=== PATIENT | female | born 1945 | race Caucasian/White ===

== ENCOUNTER 2018-09-09 16:20 | Inpatient (IN) | payer MEDICARE, BC ==
[~2018-09-09] VITALS: Ht 165.1 cm; Wt 85.5 kg
[2018-09-09] MEDS ORDERED: NORVASC5 MG PO (16:37)
[2018-09-09] MEDS ORDERED: METOPROLOL TART50 MG PO (16:38)
[2018-09-09] MEDS ORDERED: COZAAR100 MG PO (16:38)
[2018-09-09] MEDS ORDERED: PROTONIX40 MG PO (16:39)
[2018-09-09] MEDS ORDERED: LYRICA50 MG PO (16:39)
[2018-09-09] MEDS ORDERED: NITROQUICK0.4 MG SL (16:40)
[2018-09-09] MEDS ORDERED: ALBUTEROL2.5 MG/3 M INH (16:40)
[2018-09-09] MEDS ORDERED: ALBUTEROL SULF8.5 GM INH (16:40)
[2018-09-09] MEDS ORDERED: OMEPRAZOLE20 M1 PO (16:41)
[2018-09-09] MEDS ORDERED: RANITIDINE HCL150 M1 PO (16:42)
[2018-09-09 18:01] LABS: APPEARANCE CLEAR (CLEAR); BILIRUBIN NEGATIVE (NEGATIVE); COLOR STRAW (YELLOW); GLUCOSE NEGATIVE (NEGATIVE); KETONE NEGATIVE (NEGATIVE); NITRITE NEGATIVE (NEGATIVE); PROTEIN NEGATIVE (NEGATIVE); SPECIFIC GRAVITY 1.015 (1.005-1.020); UROBILINOGEN NORMAL (NORMAL)
--- NOTE | 2018-09-09 19:22 | NUR ---
The patient denies any SI, according to the suicide assessment she scores low and does not require a 1:1 observation.
[2018-09-09 22:50] VITALS: BP 145/83; BMI 31.3
[2018-09-09 23:23] LABS: BASOPHILS 0.1 % (0-2); EOSINOPHILS 0 % (0-7); HEMATOCRIT 49.8 % (36.0-48.0); IMMATURE GRANULOCYTES 0.2 % (0-5); LYMPHOCYTES 8.9 % (15-50); MCHC 34.1 g/dL (31.0-37.0); MCV 87.8 fL (80.0-100.0); MEAN PLATELET VOLUME 10.6 fL (7.4-10.4); MONOCYTES 1.2 % (2-11); NEUTROPHILS 89.6 % (40-80); PLATELET COUNT 201 10x3/uL (130-400); RBC 5.67 10x6/uL (4.00-5.40); RDW 13.7 % (11.5-14.5); WBC 8.2 10x3/uL (4.8-10.8)
[2018-09-09 23:36] LABS: ALBUMIN 4.2 g/dL (3.4-5.0); ANION GAP 15.7 mmol/L (8-16); BILIRUBIN - TOTAL 0.87 mg/dL (0.2-1.3); CARBON DIOXIDE 25.4 mmol/L (21.0-32.0); CREATININE - SERUM 0.8 mg/dL (0.6-1.3); POTASSIUM - SERUM 4.1 mmol/L (3.5-5.1); PROTEIN - SERUM 8.1 g/dL (6.4-8.2)
[2018-09-10] VITALS: BP 145/83
[2018-09-10 03:15] VITALS: Ht 165.1 cm; Wt 85.5 kg
[2018-09-10 04:00] VITALS: BP 135/73
--- NOTE | 2018-09-10 07:23 | NUR ---
ASSESSED AT THE TIME OF ARRIVAL FROM ER. PT IS ALERT AND ORIENTED BUT IS VERY ANXIOUS. SHE WAS SEEN BY BOWEN FOR DR PEDERSON WHEN SHE HAD BEEN HERE FOR A VERY SHORT WHILE. WE PLACED TELEMETRY ON HER AND THEN THEN GAVE HER DILAUDID TWICE DURING THE NIGHT FOR BACK PAIN AND ANXIETY. SHE IS ALSO ON FALL PRECAUTIONS. O2 WAS ORDERED FOR HER AND IT IS ON AT THIS TIME ALTHOUGH SHE IS NOT WANTING TO KEEP IT ON. SHE HAS HER CALL LIGHT ON FREQUENTLY TELLING US SHE IS ANXIOUS AND WE HAVE TRIED TO KEEP HER CALM. NO PROBLEMS HAVE BEEN NOTED.
--- NOTE | 2018-09-10 07:30 | NUR ---
A SUGGS CATH WAS PALCED IN PATIENT AT ABOUT MIDNIGHT AFTER IT WAS ORDERED DUE TO HER BACK PAIN AND VERY FREQUENT VOIDING.
[2018-09-10 08:00] VITALS: BP 126/75
--- NOTE | 2018-09-10 13:05 | NUR ---
PT RESTING IN BED. NO SIGNS OF DISTRESS. IV TO LEFT AC PATENT NO REDNESS OR TENDERNESS. ON TELEMETRY 93 SR. COMPLAINS OF ANXIETY MEDICATIONS GIVEN. DENIES ANY FUTHER NEED AT THIS TIME. CALL LIGHT IN REACH. BED LOW POSIITON. FAMILY AT BEDSIDE.
[2018-09-10 13:07] VITALS: BP 117/63
--- NOTE | 2018-09-10 13:32 | NUR ---
MRI BRAIN CANCELLED BY DR. PEDERSON. DUE TO PATIENT HAD MRI BRAIN AT [facility] ON THURSDAY, SEPTEMBER 06, 2018. IMAGES AND REPORT ARE IN PACS. NURSE, ERICH, NOTIFIED.
[2018-09-10 17:23] VITALS: BP 136/61
[2018-09-10 20:00] VITALS: BP 126/67
[2018-09-11] VITALS: BP 145/89
[2018-09-11 04:00] VITALS: BP 150/80
--- NOTE | 2018-09-11 04:31 | NUR ---
ASSESSED AT THE BEGINNING OF THE SHIFT. PT WAS LETHARGIC AND SLEEPY. HER DAUGHTAER HAD COME OUT AND STATED SHE HAD A HEADACHE AND NEEDED TYLENOL BUT WAS ASLEEP AND WOULD WE GIVE IT TO HER WHEN SHE WOKE. WHEN AWAKENED FOR HS MEDS WE GAVE HER TYLENOL BUT HELD THE ATIVAN DUE TO HER SLEEPING. AFTER LESS THAN 30 MINUTES SHE WAS SO UPSET SHE WAS SHAKING ALL OVER AND NEEDED HER ATIVAN. SHE KEEP STATING THAT SHE IS VERY ANXIOUS AND NEEDS TO SLEEP. LATER DURING THE NIGHT SHE HAS BEEN REQUESTING TO STAND AND SWAY AT THE BEDSIDE TO HELP HER REST BETTER. HER TELEMETRY IS SHOWING SINUS RHYTHM IN THE 60'S. THE BED ALARM REMAINS IN PLACE.
[2018-09-11 05:51] LABS: BASOPHILS 0 % (0-2); EOSINOPHILS 0 % (0-7); HEMATOCRIT 43.5 % (36.0-48.0); HEMOGLOBIN 14.7 g/dL (12-16); IMMATURE GRANULOCYTES 0.4 % (0-5); LYMPHOCYTES 8.3 % (15-50); MCH 29.7 pg (26.0-34.0); MCHC 33.8 g/dL (31.0-37.0); MCV 87.9 fL (80.0-100.0); MEAN PLATELET VOLUME 10.5 fL (7.4-10.4); MONOCYTES 4.3 % (2-11); PLATELET COUNT 195 10x3/uL (130-400); RBC 4.95 10x6/uL (4.00-5.40); RDW 13.8 % (11.5-14.5)
[2018-09-11 06:02] LABS: WBC 10.8 10x3/uL (4.8-10.8)
[2018-09-11 06:05] LABS: ANION GAP 10.4 mmol/L (8-16); CALCIUM 9.4 mg/dL (8.5-10.1); CARBON DIOXIDE 28.9 mmol/L (21.0-32.0); CREATININE - SERUM 0.8 mg/dL (0.6-1.3); POTASSIUM - SERUM 4.3 mmol/L (3.5-5.1)
[2018-09-11] MEDS ORDERED: DECADRON4 MG PO (08:37)
--- NOTE | 2018-09-11 09:00 | NUR ---
IV DC WITH CATH INTACT, DC INSTUCTIONS GIVEN PT VERABLIZES UNDERSTANDING, FAMILY AT BEDSIDE NO CONCERNS VOICED, DISK WITH IMAGING RESULTS ON IT GIVEN TO PT, LEAVING VIA WHEELCHAIR IN STABLE CONDITON
[2018-09-11 09:12] VITALS: BP 131/80
--- NOTE | 2018-09-11 09:38 | NUR ---
PT REQUESTED DEC[facility] RX BE CALLED TO [facility]. CALLED RX AND SPOKE WITH LADONNA PHARMACIST.
== END 2018-09-11 09:43 | disposition home or self-care (01) | DRG 551 ==
LOC: D.ER 16:20 → D.EDHOLD 21:19 → D.MS 21:42
PROVIDERS: Emergency Medicine; Family Medicine; ADMIT Internal Medicine Nephrology; ATTEND Internal Medicine Nephrology
DX: S32.011A Stable burst fracture of first lumbar vertebra, initial encounter for closed fracture (principal); G93.6 Cerebral edema; G81.94 Hemiplegia, unspecified affecting left nondominant side; W19.XXXA Unspecified fall, initial encounter; D43.2 Neoplasm of uncertain behavior of brain, unspecified

== ENCOUNTER → 2018-09-22 08:06 | Outpatient (CLI) | payer MEDICARE, BC ==
[2018-09-10 03:15] VITALS: BMI 31.3
[~2018-09-22 08:06] MED LIST: ALBUTEROL SULF8.5 GM INH; ALBUTEROL2.5 MG/3 M INH; ATIVAN0.5 MG PO; BAYER CHEWABLE81 MG PO; COLACE100 MG PO; COZAAR100 MG PO; DECADRON4 MG PO; LYRICA50 MG PO; MEDROL DOSE PACK4 MG PO; METOPROLOL TART50 MG PO; NITROQUICK0.4 MG SL; NORVASC5 MG PO; OMEPRAZOLE20 M1 PO; PREDNISONE5 MG PO; PROTONIX40 MG PO; RANITIDINE HCL150 M1 PO; SINGULAIR10 MG PO; ULTRAM50 MG PO
== END | disposition home or self-care (01) ==
LOC: D.MRI 08:06
PROVIDERS: ATTEND Neurological Surgery
DX: D49.6 Neoplasm of unspecified behavior of brain (principal)

== ENCOUNTER 2018-09-22 08:36 | Inpatient (IN) | payer MEDICARE, BC ==
[~2018-09-22] VITALS: Ht 165.1 cm; Wt 86.6 kg
--- NOTE | ~2018-09-22 | OP ---
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 PROCEDURE: Right frontal craniotomy with stereotactic navigation for scalp flap planning as well as intraoperative resection monitoring, intraoperative ultrasound. SURGEON: Balbir Gusman MD DESCRIPTION AND TECHNIQUE: After induction of general endotracheal anesthesia, the patient was placed in Castell head pin and its registration took place with the TrademarkFly navigation system and fiducial markers on the scalp. A scalp incision and skull flap were planned using the TrademarkFly navigation. After sterile prep and drape of the right frontal scalp, a linear scalp incision was carried out from the midline to approximately 4 cm laterally. Natalia clips were applied to the scalp for hemostasis. Two ashley holes were created, one based off the midline and another approximately 4 cm lateral to that. These were connected with a Midas-Kamlesh drill. The skull was elevated without difficulty from the dura. The dura was opened in a cruciate manner with bipolar cautery and #11 blade. With a Kanika navigation, the tumor was well centered within the exposure of the brain. The gyri were edematous. Sulci were effaced. Next, a portion of the tumor was located approximately 3-mm deep to the cortical surface of the brain. The cyndi over this area was cauterized with bipolar cautery and then a small corticotomy was created with #11 blade. Under microscopic illumination, several biopsies were sent to pathology for diagnosis. These were consistent with lymphoma. Next, under microscopic illumination the CUSA was used to evacuate the inner portions of the tumor and then the capsule was dissected away from the surrounding white matter until there appeared to be a gross total resection of the tumor. Meticulous hemostasis was maintained throughout the wound. The dura was reapproximated with interrupted 4-0 Nurolon suture. The skull flap was replaced with titanium plates and screws. The galea was reapproximated with interrupted 2-0 Vicryl suture. The skin was closed with yuan. A sterile dressing was applied to the wound. The patient was awakened in good condition and taken to recovery. All counts were reported as correct. ESTIMATED BLOOD LOSS: Minimal. TRANSINT:[id number] Voice Confirmation ID: [id number] DOCUMENT ID: [id number] OPERATIVE REPORT [id number] INDIA FINE JOHN MD CC: [id number] DICTATION DATE: 10/13/181811 VALUE STREAM MANAGER: 10/13/182248 DIS IN 09/27/18 [place] [id number] [place] [id number]
[~2018-09-22 08:36] MED LIST changes: -ATIVAN0.5 MG PO; -BAYER CHEWABLE81 MG PO; -COLACE100 MG PO; -MEDROL DOSE PACK4 MG PO; -PREDNISONE5 MG PO; -SINGULAIR10 MG PO; -ULTRAM50 MG PO
[2018-09-22] MEDS ORDERED: PREDNISONE5 MG PO (10:18)
[2018-09-22] MEDS ORDERED: BAYER CHEWABLE81 MG PO (10:19)
[2018-09-22] MEDS ORDERED: ATIVAN0.5 MG PO (10:20)
[2018-09-22 11:01] LABS: HEMATOCRIT 46.9 % (36.0-48.0); HEMOGLOBIN 15.9 g/dL (12-16); MCH 30.1 pg (26.0-34.0); MCHC 33.9 g/dL (31.0-37.0); MCV 88.8 fL (80.0-100.0); MEAN PLATELET VOLUME 9.5 fL (7.4-10.4); RBC 5.28 10x6/uL (4.00-5.40); RDW 14.8 % (11.5-14.5); WBC 17.4 10x3/uL (4.8-10.8)
[2018-09-22 11:15] LABS: ANION GAP 8.8 mmol/L (8-16); CALCIUM 8.5 mg/dL (8.5-10.1); CARBON DIOXIDE 30.5 mmol/L (21.0-32.0); CREATININE - SERUM 0.8 mg/dL (0.6-1.3); POTASSIUM - SERUM 4.3 mmol/L (3.5-5.1)
[2018-09-24] VITALS (18 sets, daily range): BP systolic 100–139; BP diastolic 54–78; BMI 31.3
--- NOTE | 2018-09-24 06:52 | NUR ---
SUICIDE SCREENING STATES BEHAVIORAL REFERRAL AT DISCHARGE. PT WILL BE ADMITTED AFTER SURGERY. NOTIFIED BIBLICAL STUDIES PROFESSOR, MARCI. STATES THEY WILL RE-EVAL WHEN ADMITTED TO FLOOR. PT STATES HAD CONSULT IN ER TWO WEEKS AGO.
--- NOTE | 2018-09-24 09:59 | NUR ---
DR COX PRESENT AND ASSISTING ON POSITION INTO OGALLAH HEADREST, ALL AREAS PADDED SECURED WITH NO IMPINGEMENTS, CAROLINE.
[2018-09-25] VITALS (24 sets, daily range): BP systolic 110–146; BP diastolic 60–91; Ht 165.1 cm; Wt 86.6 kg
--- NOTE | 2018-09-25 00:53 | NUR ---
1900 REPORT RECEIVED CARE ASSUMED. PT LAYING IN BED RESTING. PT PULLING AT STOCKING ON HEAD TEACHING PROVIDED. ASSESSEMENT DONE SEE FLOW SHEET VSS. 2100 MEDS GIVEN PER MAY. VSS. COMPLETE BED BATH GIVEN CHG BATH GIVEN WILL CONTINUE TO MONITOR. 230 REASSESSMENT DONE SEE FLOW SHEET VSS. 0100 WATER PROVIDED PER PT REQUEST WILL CONTINUE TO MONITOR.
--- NOTE | 2018-09-25 03:00 | NUR ---
REASSESSMENT DONE SEE FLOW SHEET VSS WILL CONTINUE TO MONITOR.
--- NOTE | 2018-09-25 05:00 | NUR ---
IO COLLECTED DAILY WEIGHT COLLECTED. VSS. WAVE FORM POSITIONAL ON ART LINE NIBP WITHIN TARGET RANGE. WILL CONITNUE TO MONITOR.
--- NOTE | 2018-09-25 21:00 | NUR ---
1900 REPORT RECEIVED CARE ASSUMED ASSESSMENT DONE SEE FLOW SHEET VSS. 2100 MEDS GIVEN PER MAR. VSS. NO SIGNS OF ACUTE DISTRESS NOTED. CHG BATH PROVIDED. COMPLETE LINEN CHANGE PROVIDED. WILL CONTINUE TO MONITOR.
[2018-09-26] VITALS (24 sets, daily range): BP systolic 123–168; BP diastolic 67–99
--- NOTE | 2018-09-26 00:57 | NUR ---
2300 REASSESSMENT DONE SEE FLOW SHEET. VSS. 0056 PT RESTING IN BED COMFORTABLY VSS NO SIGNS OF ACUTE DISTRESS NOTED WILL CONTINUE TO MONITOR.
--- NOTE | 2018-09-26 02:59 | NUR ---
REASSESSMENT DONE SEE FLOW SHEET VSS. PT ABLE TO MOVE LUE NOTABLY MORE. WILL CONTINUE TO MONITOR.
--- NOTE | 2018-09-26 10:15 | NUR ---
HAVING PANIC ATTACK. CRYING AND SCREAMING THAT SHE IS ITCHING ALL OVER. WANTING TO TAKE A SHOWER. GIVEN HER CELL PHONE SO SHE COULD CALL HER . DAUGHTER CALLED FROM ROOM PHONE WITH NO ANSWER. COMPLETE BATH AND LINEN CHANGE DONE. ASSISTED UP TO CHAIR. 1030: CALMER NOW. FAMILY ON THE WAY.
--- NOTE | 2018-09-26 14:15 | NUR ---
DR. COX HERE. CONDITION UPDATE GIVEN. REC'D ORDER TO RESTART HOME MEDS.
--- NOTE | 2018-09-26 20:03 | NUR ---
PT RECEIVED WITH EYES OPEN WATCHING PLAYING GAME ON TABLE. DENIES FEELING ANXIOUS AT THIS TIME. ASSESSMENT COMPLETED SEE FLOW SHEET. VSS. NO S/S OF DISTRESS. DAUGHTER AT BEDSIDE LEAVING ROOM. CALL LIGHT IN REACH. WILL CONTINUE TO OBSERVE.
--- NOTE | 2018-09-26 21:37 | NUR ---
MEDICATIONS GIVEN PER MAR, TOLERATED WELL. DAUGHTER AT BEDSIDE. C/O HEADACHE WITH PRN MEDICATIONS GIVEN FOR PAIN AND ANXIETY. CALL LIGHT IN REACH. WILL CONTINUE TO OBSERVE.
--- NOTE | 2018-09-26 22:38 | NUR ---
CHG BATH GIVEN BY DAUGHTER. PT TOLERATED WELL. ASSIST GIVEN WITH LINENS AND REPOSITIONING. WARM BLANKET PROVIDED PER REQUEST. NO OTHER NEEDS MADE KNOWN. LIGHTS TURNED OUT. CALL LIGHT IN REACH. WILL CONTINUE TO OBSERVE.
--- NOTE | 2018-09-26 23:08 | NUR ---
REASSESSMENT COMPLETED, SEE FLOW SHEET. NO NEEDS MADE KNOWN. CALL LIGHT IN REACH. WILL CONTINUE TO OBSERVE.
[2018-09-27] VITALS (18 sets, daily range): BP systolic 108–161; BP diastolic 51–91
--- NOTE | 2018-09-27 01:20 | NUR ---
PT RESTING WITH EYES CLOSED AND CHEST RISING. NO S/S OF DISTRESS. CALL LIGHT IN REACH. WILL CONTINUE TO OBSERVE.
--- NOTE | 2018-09-27 02:01 | NUR ---
PT USES CALL LIGHT, STATES THAT SHE IS FEELING COLD AND NEEDS ASSIST WITH REPOSITIONING. PILLOW PLACE UNDER LEFT SIDE AND WARM BLANKET PROVIDED. WILL CONTINUE TO OBSERVE. CALL LIGHT IN REACH.
--- NOTE | 2018-09-27 04:02 | NUR ---
REASSESSMENT COMPLETED, SEE FLOW SHEET. NO S/S OF DISTRESS. WILL CONTINUE TO OBSERVE. CALL LIGHT IN REACH.
--- NOTE | 2018-09-27 08:07 | NUR ---
SHIFT ASSESSMENT COMPLETE. PT HAS BEEN GIVEN BREAKFAST. AT BEDSIDE. PT STATES "HAD GOOD EVENING" AND "FEELS BETTER TODAY THAN WHEN FIRST ARRIVED"
--- NOTE | 2018-09-27 08:37 | NUR ---
Nutrition follow-up: Diet: Regular PO intake ~75% average of last 6 meals Labs reviewed Wt: 191# RDN following.
--- NOTE | 2018-09-27 08:49 | NUR ---
PHYSICAL THERAPIST AT BEDSIDE AT THIS TIME FOR THERAPY
--- NOTE | 2018-09-27 10:11 | NUR ---
DR COX BY TO SEE PT. REHAB EVAL ORDERED. PT CAN TRANSFER TO FLOOR IF WILL BE SEVERAL DAYS BEFORE CAN GET TO INPATIENT REHAB. ALSO OK TO RESTART PT HOME DOSING OF SINGULAIR.
[2018-09-27] MEDS ORDERED: SINGULAIR10 MG PO (10:17)
--- NOTE | 2018-09-27 10:44 | NUR ---
Rehab Note- Acute INpatient Rehab prescreen order received. The patient is a good inpatient acute rehab candidate. Will follow at this time & if the patient is in agreeance will accept to [facility] Acute INpatient Rehab when medically stable & ready for discharge from the acute hospital. Thank you for this referral! Gissell Alas RN Clinical Liaison, [facility] Rehab
--- NOTE | 2018-09-27 15:03 | NUR ---
PT HAS BEEN ACCEPTED TO INPATIENT REHAB. HAVE ATTEMPTED TO CALL DR COX AND HIS OFFICE TO GET DISCHARGE INSTRUCTIONS. NOT YET ABLE TO REACH HIM.
--- NOTE | 2018-09-27 15:06 | MORECARE ---
CASE MANAGEMENT DISCHARGE SUMMARY PATIENT: INDIA FINE UNIT: [id number] ADM DATE: 09/24/18 AGE: 72 : 45 SEX: F [facility] AUTHOR: SANDRINE JENKINS PHYSICIAN: REFERRING PHYSICIAN: BALBIR COX MD DATE OF SERVICE: 09/27/18 Discharge Plan Patient Name: INDIA FINE [facility] [facility] 1945 Planned Disposition: Inpatient Rehab Anticipated Discharge Date: Discharge Date: Expected LOS: Initial Reviewer: [email or web address] Initial Review Date: 09/27/2018 Generated: 09/27/18 4:06 pm DCP- Discharge Planning Updated by [email or web address]: Karen Miranda on 09/27/18 10:[address] Patient Name: INDIA FINE Admission Status: Urgent Accout number: [id number] Admission Date: 09-24-2018 : 1945 Admission Diagnosis: Attending: BALBIR COX Current LOS: 3 Anticipated DC Date: Planned Disposition: Primary Insurance: MEDICARE A & B Discharge Planning Comments: CM MET WITH PATIENT AND SHE DOES WANT IPRH. IMM SIGNED. SARAH NOTIFIED AND WAITING FOR CALL BACK. Marketing Production Manager: Karen Mirnada Coverage Notice Reviewer: [id number] - Karen Miranda Notice Issued Date-Time: 09/27/2018 11:36 Notice Type: IM Discharge Notice Notice Delivered To: Patient Relationship to Patient: Self Feed Blender Name: Delivery Method: HAND - Hand Delivered Adalgisa Days: Prior Verbal Notification: Recipient Understood Notice: Yes Recipient Signature: Yes Med Rec Note Co-signed by Attending: Coverage Notice Comment: Patient Name: INDIA FINE Page [phone] at 1506 All edits/amendments must be made on the electronic document DICTATION DATE: 09/27/18 1505 REVERSE ENGINEER: BERRY 09/27/18 1505 RPT#: [id number] DC DATE: STATUS: ADM IN [facility] [address] [place] [address] END OF REPORT
[2018-09-27] MEDS ORDERED: NORVASC5 MG PO (15:36)
[2018-09-27] MEDS ORDERED: PROTONIX40 MG PO (15:43)
[2018-09-27] MEDS ORDERED: MEDROL DOSE PACK4 MG PO (15:43)
[2018-09-27] MEDS ORDERED: COLACE100 MG PO (15:44)
[2018-09-27] MEDS ORDERED: ULTRAM50 MG PO (15:45)
--- NOTE | 2018-09-27 17:07 | NUR ---
RIGHT JUGULAR CENTRAL LINE REMOVED, TIP INTACT. NO BLEEDING. SITE COVERED WITH GAUZE AND TEGADERM DRESSING. SUGGS CATHETER REMOVED WITH NO DIFFICULTY. TIP INTACT. DINNER TRAY PROVIDED. REPORT HAS BEEN CALLED TO [facility] IN REHAB.
--- NOTE | 2018-09-27 17:40 | NUR ---
OT NOTE: PT COMPLETED AAROM TO [facility]OD[facility]. THANK YOU, LOCO WINN
--- NOTE | 2018-09-28 11:30 | MORECARE ---
CASE MANAGEMENT DISCHARGE SUMMARY PATIENT: INDIA FINE UNIT: [id number] ADM DATE: 09/24/18 AGE: 72 : 45 SEX: F ROOM/BED: D.[facility] AUTHOR: SANDRINE JENKINS PHYSICIAN: REFERRING PHYSICIAN: BALBIR COX MD DATE OF SERVICE: 09/28/18 Discharge Plan Patient Name: INDIA FINE Facility: [facility]:[place] : 1945 Planned Disposition: Inpatient Rehab Anticipated Discharge Date: Discharge Date: 09/27/2018 Expected LOS: Initial Reviewer: [email or web address] Initial Review Date: 09/27/2018 Generated: 09/28/18 12:29 pm DCP- Discharge Planning Updated by [email or web address]: Karen Miranda on 09/27/18 10:[address] Patient Name: INDIA FINE Admission Status: Urgent Accout number: [id number] Admission Date: 09-24-2018 : 1945 Admission Diagnosis: Attending: BLABIR COX Current LOS: 3 Anticipated DC Date: Planned Disposition: Primary Insurance: MEDICARE A & B Discharge Planning Comments: CM MET WITH PATIENT AND SHE DOES WANT IPR. IMM SIGNED. SARAH NOTIFIED AND WAITING FOR CALL BACK. Gimp Buttonhole Machine Operator: Karen Miranda Coverage Notice Reviewer: [id number] - Karen Miranda Notice Issued Date-Time: 09/27/2018 11:36 Notice Type: IM Discharge Notice Notice Delivered To: Patient Relationship to Patient: Self Hop Separator Name: Delivery Method: HAND - Hand Delivered Adalgisa Days: Prior Verbal Notification: Recipient Understood Notice: Yes Recipient Signature: Yes Med Rec Note Co-signed by Attending: Coverage Notice Comment: Last DP export: 09/27/18 2:06 pm Patient Name: INDIA FINE Page [phone] at 1130 All edits/amendments must be made on the electronic document DICTATION DATE: 09/28/18 112 BUSINESS LEADER: BERRY 09/28/18 1129 RPT#: [id number] DC DATE:09/27/18 STATUS: DIS IN [place] [id number] [place] [address] END OF REPORT
== END 2018-09-27 19:05 | DRG 26 ==
LOC: D.SDCHOLD 09-24 05:15 → D.CVICU 09-24 12:15
PROVIDERS: Anesthesiology; ADMIT Neurological Surgery; ATTEND Neurological Surgery
PROC: 00B00ZZ Excision of Brain, Open Approach (ICD-10-PCS; principal; 2018-09-24 07:30)
DX: D49.6 Neoplasm of unspecified behavior of brain (principal); S32.019A Unspecified fracture of first lumbar vertebra, initial encounter for closed fracture; W19.XXXA Unspecified fall, initial encounter; I10 Essential (primary) hypertension; J45.909 Unspecified asthma, uncomplicated; M21.371 Foot drop, right foot; K21.9 Gastro-esophageal reflux disease without esophagitis; M19.90 Unspecified osteoarthritis, unspecified site; R48.2 Apraxia

== ENCOUNTER 2018-09-27 16:33 | Inpatient (IN) | payer MEDICARE, BC ==
[~2018-09-27] VITALS: Ht 165.1 cm; Wt 86.6 kg
[~2018-09-27 16:33] MED LIST changes: +ATIVAN0.5 MG PO; +BAYER CHEWABLE81 MG PO; +COLACE100 MG PO; +MEDROL DOSE PACK4 MG PO; +PREDNISONE5 MG PO; +SINGULAIR10 MG PO; +ULTRAM50 MG PO
[2018-09-27 20:09] VITALS: BP 146/91; BMI 31.8
--- NOTE | 2018-09-27 22:17 | NUR ---
DR MAURO NOTIFIED AND REVIEWED PT BEHAVIOR AND ASSESSMENT RESULTS. PT IS A LOW RISK PER . DR MAURO STATED TO GIVE RESOURCES TO PT AT TIME OF DISCHARGE. NO FURTHER ORDERS AT THIS TIME. RESOURCES REVIEWED WITH PT AND SHE VERBALIZED UNDERSTANDING.
--- NOTE | 2018-09-27 22:42 | NUR ---
ADMITTED TO 1108B FOR PHSICAL REHAB AND SERVICES OF DR CARPENTER. AWAKE AND ALERT. RESPIRATIONS UNLABORED. DRESSING TO FORMER IJ SITE DRY AND INTACT. NOTED WEAKNESS IN LEFT ARM/HAND AND BLE'S. SEE ADMISSION ASSESSMENT. NOTED ANXIOUS AND WAS TREATED WITH MEDICATION PRN. SEE MAY. DAUGHTER REMAINED AT BEDSIDE UNTIL SHE WAS CALMER. NOW RESTING WITH NO ACUTE DISTRESS NOTED.
--- NOTE | 2018-09-28 02:20 | NUR ---
RESTING IN BED WITH RESPRIATIONS UNLABORED. HAS BEEN UP TO BATHROOM X 2 THIS SHIFT AND VOIDING WITHOUT DIFFICULTY. NO ACUTE DISTRESS NOTED. CALL LIGHTJENA ARREOLA.
--- NOTE | 2018-09-28 05:00 | NUR ---
RESTING IN BED. HAS BEEN UP TO BATHROOM SEVERAL TIMES THIS SHIFT TO VOID BUT DID NOT HAVE BM. USES WALKER WITH COAXING. NO ACUTE CHANGES IN CONDITION THIS SHIFT. NO ACUTE DISTRESS NOTED.
[2018-09-28 07:35] LABS: BASOPHILS 0 % (0-2); EOSINOPHILS 0 % (0-7); HEMATOCRIT 44.5 % (36.0-48.0); HEMOGLOBIN 14.8 g/dL (12-16); IMMATURE GRANULOCYTES 0.5 % (0-5); LYMPHOCYTES 8.7 % (15-50); MCH 29.7 pg (26.0-34.0); MCHC 33.3 g/dL (31.0-37.0); MCV 89.4 fL (80.0-100.0); MEAN PLATELET VOLUME 10.1 fL (7.4-10.4); MONOCYTES 7.8 % (2-11); RBC 4.98 10x6/uL (4.00-5.40); RDW 14.8 % (11.5-14.5); WBC 10.8 10x3/uL (4.8-10.8)
[2018-09-28 07:41] LABS: PLATELET COUNT 151 10x3/uL (130-400)
[2018-09-28 07:44] LABS: CALC OSMOLALITY 276 mosm/kg (275-300); CALCIUM 8.4 mg/dL (8.5-10.1); CARBON DIOXIDE 29.9 mmol/L (21.0-32.0); CHLORIDE - SERUM 101 mmol/L (98-107); CREATININE - SERUM 0.7 mg/dL (0.6-1.3); GLUCOSE 108 mg/dL (74-106); POTASSIUM - SERUM 4.5 mmol/L (3.5-5.1); SODIUM 136 mmol/L (136-145); UREA NITROGEN 24 mg/dL (7-18); eGFR NON AFRICAN AMERICAN 87 mL/min (90-120)
--- NOTE | 2018-09-28 07:51 | NUR ---
ALERT AND ORIENTED. PAIN MED GIVEN THIS AM. NO DISTRESS NOTED. EATING BREAKFAST. CL IN REACH.
[2018-09-28 08:00] VITALS: BP 132/80
[2018-09-28 11:53] VITALS: BMI 31.7
--- NOTE | 2018-09-28 13:06 | NUR ---
NO CHANGE IN ASSESSMENT. PARTICIPATED IN THERAPY THIS AM. NO C/O PAIN AT THIS TIME.
--- NOTE | 2018-09-28 16:24 | NUR ---
ASSISTED TO BR WITH RW. VOIDS WO DIFFFICULTY. MIN ASSIST WITH RW. PATIENT TAKES R HAND AND PLACES LEFT HAND ON RW OR GRAB BAR. IS UNABLE TO MOVE L ARM WO PICKING IT UP AND PLACING IT WHERE SHE NEEDS IT WITH HER R HAND. NO CHANGE IN ASSESSMENT.
--- NOTE | 2018-09-28 19:29 | NUR ---
AWAKE AND ALERT. RESTING IN BED WITH NO DISTRESS NOTED. CONTINUES TO HAVE LEFT HAND/ARM WEAKNESS WITH CARE PROFESSIONALS ABOUT 50% OF RIGHT HAND. AMBULATES WITH CANE/WALKER AND ASSISTANCE. HAS NOTED HISTORY OF BILATERAL FOOT DROP SHE STATES IS RELATED TO OLD KNEE SURGERIES. NO CURRENT C/O DISCOMFORTS. CALL LIGHT IN REACH.
[2018-09-28 20:02] VITALS: BP 111/57
--- NOTE | 2018-09-29 03:41 | NUR ---
RESTING IN BED WITH NO DISTRESS NOTED. CALL LIGHT IN REACH.
--- NOTE | 2018-09-29 04:27 | NUR ---
PATIENT ANXIOUS UNCONTROLLABLE. DIVERSION TALKING, COOL WASH CLOTH, CONSOLING NOT EFFECTIVE. ATIVAN 0.5 MG GIVEN. WILL CONTINUE TO MONITOR.
--- NOTE | 2018-09-29 04:54 | NUR ---
RESTING IN BED NOW CALMER AND RESPIRATIONS UNLABORED. CALL LIGHT IN REACH.
[2018-09-29 08:02] VITALS: BP 111/71
--- NOTE | 2018-09-29 08:02 | NUR ---
ALERT AND ORIENTED. NO C/O PAIN. CL IN REACH. RESP EVEN AND UNLABORED. CL IN REACH.
[2018-09-29 09:45] LABS: BASOPHILS 0 % (0-2); EOSINOPHILS 0.1 % (0-7); HEMATOCRIT 49.5 % (36.0-48.0); HEMOGLOBIN 16.5 g/dL (12-16); IMMATURE GRANULOCYTES 0.4 % (0-5); LYMPHOCYTES 7.1 % (15-50); MCH 30.3 pg (26.0-34.0); MCHC 33.3 g/dL (31.0-37.0); MEAN PLATELET VOLUME 10.2 fL (7.4-10.4); NEUTROPHILS 85.4 % (40-80); PLATELET COUNT 155 10x3/uL (130-400); RBC 5.44 10x6/uL (4.00-5.40); RDW 15.1 % (11.5-14.5); WBC 12.2 10x3/uL (4.8-10.8)
[2018-09-29 10:00] LABS: ANION GAP 12.9 mmol/L (8-16); CALCIUM 8.5 mg/dL (8.5-10.1); CARBON DIOXIDE 30.1 mmol/L (21.0-32.0); CREATININE - SERUM 0.8 mg/dL (0.6-1.3)
--- NOTE | 2018-09-29 12:09 | RHP ---
PATIENT: INDIA FINE MEDICAL RECORD: [id number] ACCOUNT: [id number] [facility] [birth year] ADMISSION DATE: 09/27/18 REHABILITATION HISTORY AND PHYSICAL EXAMINATION POST ADMISSION PHYSICIAN EXAMINATION DATE OF ADMISSION: 09/27/2018. ADMITTING DIAGNOSIS: Nontraumatic brain dysfunction. HISTORY OF PRESENT ILLNESS: The patient was admitted to the inpatient rehab for nontraumatic brain dysfunction. She has got a right posterior frontal lobe mass measuring about 1.5 cm, status post craniotomy. A 72-year-old female patient that had an elective craniotomy for a right posterior frontal mass measuring up to 1.5 cm. This was demonstrated on MRI. She had a previous MRI secondary to left upper extremity weakness, was found to have a brain mass. She was in the acute hospital from 09/09/2018 to 09/11/2018 when she requested a second opinion. She was discharged home on 09/11/2018 and underwent a kyphoplasty on 09/15/2018 on T12 and L1 at Dr. Gusman's office. She had a past medical history of brain lesion, thoracic aneurysm, hypertension, asthma, arthritis. She has had a history of clotting disorder, hypertension, MN, irritable bowel syndrome, osteoarthritis, anxiety. She is currently on telemetry. She is getting IV Decadron every 8 hours, monitored closely for any changes in her level of consciousness, has been monitored closely also for any signs of bleeding secondary to her clotting disorder, also pain management and management of her gait disturbance. She has got impaired mobility, recent fall. She is a high fall risk and self-care deficits. These are all barriers to her discharge home safely at this time. She lives at home with her , was moderately independent with a rolling walker or cane for mobility. Also, uses a brace at times, was independent with her ADLs prior to this acute hospitalization. Currently set up for mod assist for ADLs and mod assist to max assist for mobility. She plans to return home as close to her prior level of functioning or possible after her inpatient rehab stay. COMORBIDITIES: In this patient include brain mass, hypertension, osteoarthritis, impaired mobility, history of fall, right foot drop, recent falls, left upper extremity ataxia, compression fracture of L1 with recent kyphoplasty. PAST MEDICAL HISTORY: Significant for brain mass, right foot drop, tremors, clotting disorder, sinus problems, hypertension, thoracic aneurysm, MN, asthma, acid reflux, has got a history of pelvic and lumbar fractures in the past, anxiety and depression. PAST SURGICAL HISTORY: Includes hysterectomy, bladder suspension, left shoulder dislocation, bilateral knee replacements. She has got a right eye implant, toe amputated, right venous filter placed, leg venous filter placed, and a right partial calf removal. ALLERGIES: HYDROCODONE AND PROPRANOLOL. CURRENT MEDICATIONS: Include Cozaar 100 mg daily, aspirin 81 mg daily, Protonix 40 mg daily, Ventolin updrafts 2.5 mg q.6 hours p.r.n., Singulair 10 mg q.h.s., metoprolol 50 mg q.h.s., Colace 100 mg b.i.d., amlodipine 5 mg b.i.d. She is on a tapering dose of Medrol. She is on MiraLax 17 g b.i.d., tramadol 50 mg q.4 HISTORY AND PHYSICAL [id number] FINE,INDIA hours p.r.n., Nitrostat as needed, and lorazepam 0.5 mg b.i.d. p.r.n. HABITS: No alcohol or tobacco use. FAMILY HISTORY: Noncontributory. SOCIAL HISTORY: The patient hopes to return back home and get back to her prior level of functioning. REVIEW OF SYSTEMS: GENERAL: Does complain of weakness and fatigue. HEENT: Denies cold, cough, or congestion. CARDIOVASCULAR: Denies chest pain. PHYSICAL EXAMINATION: VITAL SIGNS: Stable, afebrile. GENERAL: A well-developed female, in no acute distress upon exam. HEENT: Normocephalic and atraumatic. Mucosa is moist. TMs appear shiny and mobile. She does have noted surgery on her eye in the past. LUNGS: Clear in upper colvin. No wheezing, rhonchi, or rales. HEART: Regular rate and rhythm. No murmurs, rubs or gallops. ABDOMEN: Benign. EXTREMITIES: No clubbing, cyanosis or edema. NEUROLOGIC: She does have noted weakness. LABORATORY DATA: Her white count is 10.8, H&H of 15 and 44 and platelet count was noted to be 151. Sodium 136, potassium 4.5, BUN and creatinine of 24 and 0.7 and blood sugar is noted to be 108. ASSESSMENT: This is a 72-year-old female patient admitted to the rehab with a working diagnosis of nontraumatic brain dysfunction, status post craniotomy for frontal mass tumor. The patient has potential to make improvement. We instituted the following multidisciplinary therapies including, but not limited to physical, occupational, respiratory, speech, nutritional services, prosthetics and orthotics. Given her complex medical condition and risks for more complications, rehabilitation services cannot be provided at a low level of care such as skilled nurse facility. PLAN: 1. Admit to [facility] rehab or an inpatient therapy to include the following disciplines: A. Physical therapy to improve gait, all transfer skills and bed mobility to a modified independent level. B. Occupational therapy to improve activities of daily living to a modified independent level. C. Case management to assist with discharge planning and placement options. D. Nutrition to assist with nutritional needs. E. Rehabilitation nursing to assist with monitoring the patient's underlying medical condition and to assist with any type of bowel and bladder management. 2. The patient's current medications and medical care will be continued. 3. The patient will be placed on standard fall precautions. 4. The patient's estimated length of stay is approximately 7-10 days. 5. Discussed with patient during care team staff meeting this week. TRANSINT:[id number] Voice Confirmation ID: [id number] DOCUMENT ID: [id number] HISTORY AND PHYSICAL [id number] INDIA FINE notes whether there has been none or any medical/functional change since admission: - No change since prescreen. DALE attests patient continues to be appropriate for IRF: - Continues to be appropriate. BALBIR CARPENTER MD at 1209 CC: [id number] DICTATION DATE: 09/28/18 1037 INTERVENTIONAL CARDIOLOGIST: 09/28/18 1102 ADM IN [facility] [address] [place] [address]
--- NOTE | 2018-09-29 12:52 | NUR ---
PATIENT HAS ANXIETY AND CRISTIAN AT TIMES ETC. ATIVAN CHANGED TO Q8 HR. ATIVAN GIVEN. RESTING QUIETLY NOW WO DISTRESS.
--- NOTE | 2018-09-29 17:19 | NUR ---
NO CHANGE IN ASSESSMENT. RESTING WO DISTRESS. CL IN REACH. AT BS.
--- NOTE | 2018-09-29 19:49 | NUR ---
PATIENT RECEIVED SITTING UP IN BED. FAMILY AT BEDSIDE. ASSESSMENT & VITAL SIGNS DONE. PATIENT HAD N0 C/O PAIN OR DISTRESS. BED LOW. CALL LIGHT WITHIN REACH. WILL CONTINUE TO MONITOR.
[2018-09-29 20:55] VITALS: BP 105/66
--- NOTE | 2018-09-30 03:52 | NUR ---
PATIENT EYES CLOSED. RESPIRATIONS 18 & EVEN. BED LOW. ALARM ON. CALL LIGHT WITHIN REACH. WILL CONTINUE TO MONITOR.
--- NOTE | 2018-09-30 04:38 | NUR ---
I have reviewed this patient and I concur with the Shift Assessment completed by the Licensed Practical Nurse today this shift.
[2018-09-30 08:00] VITALS: BP 138/84
--- NOTE | 2018-09-30 14:19 | NUR ---
Nutrition Follow Up: Chart reviewed Diet: Regular PO intake: 100% meal avg BM: 09/30/18 Meds and labs noted Rec continue current diet. RD following.
[2018-10-01 00:49] VITALS: BP 115/69
--- NOTE | 2018-10-01 05:01 | NUR ---
PT IN BED LOWEST POSITION, NO NEEDS NOTE, EYES CLOSED, AROUSES TO VOICE,
[2018-10-01 06:20] LABS: BASOPHILS 0 % (0-2); EOSINOPHILS 1.4 % (0-7); HEMATOCRIT 46.6 % (36.0-48.0); HEMOGLOBIN 15.4 g/dL (12-16); IMMATURE GRANULOCYTES 0.6 % (0-5); LYMPHOCYTES 13.9 % (15-50); MCV 90.8 fL (80.0-100.0); MEAN PLATELET VOLUME 9.9 fL (7.4-10.4); MONOCYTES 7.3 % (2-11); NEUTROPHILS 76.8 % (40-80); PLATELET COUNT 129 10x3/uL (130-400); RBC 5.13 10x6/uL (4.00-5.40); RDW 15.1 % (11.5-14.5); WBC 10.7 10x3/uL (4.8-10.8)
--- NOTE | 2018-10-01 06:47 | NUR ---
PT IN BED LOWEST POSITION, EYES CLOSED, AROUSES EASILY, RESPIRATIONS EVEN AND UNLABORED, NO IMMEDIATE NEEDS NOTED, FLUIDS AND CALL LIGHT WITHIN REACH
[2018-10-01 06:54] LABS: CALC OSMOLALITY 276 mosm/kg (275-300); CALCIUM 8.5 mg/dL (8.5-10.1); CARBON DIOXIDE 33.2 mmol/L (21.0-32.0); CHLORIDE - SERUM 102 mmol/L (98-107); CREATININE - SERUM 0.7 mg/dL (0.6-1.3); GLUCOSE 97 mg/dL (74-106); POTASSIUM - SERUM 4.2 mmol/L (3.5-5.1); SODIUM 137 mmol/L (136-145); UREA NITROGEN 21 mg/dL (7-18); eGFR NON AFRICAN AMERICAN 87 mL/min (90-120)
[2018-10-01 08:00] VITALS: BP 143/102
--- NOTE | 2018-10-01 08:00 | NUR ---
CRYING IN ROOM STATING SHE FEELS ANXIOUS AND ITCHING. DR CARPENTER NOTIFIED
--- NOTE | 2018-10-01 10:40 | NUR ---
RESTING QUIETLY IN BED. HAD AN EXTENDED EPISODE OF CRYING AND CLAWING AT HER SKIN. SHE STATES SHE ITCHES WHEN SHE HAS ANXIETY ATTACK AND STARTS CLAWING HER SKIN. DR CARPENTER NOTIFIED AND MADE MEDICATION CHANGE. SHE DID CALM DOWN. CALL LIGHT IN REACH. BED RAILS UP X2.
[2018-10-01 22:01] VITALS: BP 121/68
--- NOTE | 2018-10-01 22:50 | NUR ---
PATIENT RECEIVED SITTING UP IN BED WATCHING TV. ASSESSMENT & VITAL SIGNS DONE. NO C/O PAIN OR DISTRESS. BED LOW. ALARM ON. BEDSIDE TABLE & CALL LIGHT WITHIN REACH. WILL CONTINE TO MONITOR.
--- NOTE | 2018-10-01 23:24 | NUR ---
RESTING IN BED WITH RESPIRATIONS UNLABORED. NO DISTRESS NOTED. CALL LIGHT IN REACH.
--- NOTE | 2018-10-02 02:25 | NUR ---
PATIENT AWAKE WATCHING HER TABLET. NO C/O PAIN OR DISTRESS. BED LOW. CALL LIGHT & BEDSIDE TABLE WITHIN REACH. WILL CONTINUE TO MONITOR.
[2018-10-02 08:00] VITALS: BP 126/76
--- NOTE | 2018-10-02 08:00 | NUR ---
SHIFT ASSMT COMPLETED.BREAKFAST GIVEN.CL IN REACH.
--- NOTE | 2018-10-02 12:00 | NUR ---
SITTING UP EATING LUNCH.DENIES NEEDS.
--- NOTE | 2018-10-02 19:40 | NUR ---
PT RESTING QUIETLY. CL IN REACH. NO DISTRESS NOTED. DENIES NEEDS BED IN LOW SIDE RAILS X2. RESP EVEN AND UNLABORED. WCTM
[2018-10-02 20:13] VITALS: BP 96/54
--- NOTE | 2018-10-03 00:41 | NUR ---
I have reviewed this patient and I concur with the Shift Assessment completed by the Licensed Practical Nurse today this shift.
--- NOTE | 2018-10-03 00:49 | NUR ---
PATIENT RESTING QUIETLY WITH LEFT EYE CLOSED AND RIGHT EYE OPEN. RESPIRATIONS EVEN. NO S/S OF DISTRESS. SR UP X 2. BED IN LOWEST POSITION. CALL LIGHT IN REACH.
--- NOTE | 2018-10-03 03:31 | NUR ---
pt resting quietly. cl in reach. no distress noted. eyes closed. wctm
[2018-10-03 08:00] VITALS: BP 129/80
--- NOTE | 2018-10-03 08:00 | NUR ---
SHIFT ASSMT COMPLETED.BREAKFAST GIVEN.DENIES NEEDS
--- NOTE | 2018-10-03 12:00 | NUR ---
SITTING UP EATING LUNCH.CL IN REACH. AT BEDSIDE.
--- NOTE | 2018-10-03 18:50 | NUR ---
PATIENT IS IN HER BED RESTING. HER DAUGHTER IS AT BEDSIDE. PATIENT IS REQUESTING ASSISTANCE TO TAKE A SHOWER. INFORMED PATIENT SHE MAY HAVE A SHOWER TONIGHT.
[2018-10-03 20:38] VITALS: BP 120/92
--- NOTE | 2018-10-04 | NUR ---
PATIENT IS SLEEPING.
--- NOTE | 2018-10-04 04:04 | NUR ---
PATIENT IS RESTING IN BED WITH EYES CLOSED. NO SIGNS OF DISTRESS.
[2018-10-04 06:58] LABS: BASOPHILS 0 % (0-2); EOSINOPHILS 2.3 % (0-7); HEMATOCRIT 44.1 % (36.0-48.0); HEMOGLOBIN 14.6 g/dL (12-16); IMMATURE GRANULOCYTES 0.8 % (0-5); LYMPHOCYTES 11.9 % (15-50); MCH 29.6 pg (26.0-34.0); MCHC 33.1 g/dL (31.0-37.0); MCV 89.5 fL (80.0-100.0); MEAN PLATELET VOLUME 9.4 fL (7.4-10.4); MONOCYTES 8.7 % (2-11); NEUTROPHILS 76.3 % (40-80); PLATELET COUNT 109 10x3/uL (130-400); RBC 4.93 10x6/uL (4.00-5.40); RDW 14.9 % (11.5-14.5); WBC 6.6 10x3/uL (4.8-10.8)
[2018-10-04 07:10] LABS: CALC OSMOLALITY 265 mosm/kg (275-300); CALCIUM 7.9 mg/dL (8.5-10.1); CARBON DIOXIDE 29.7 mmol/L (21.0-32.0); CHLORIDE - SERUM 98 mmol/L (98-107); CREATININE - SERUM 0.6 mg/dL (0.6-1.3); GLUCOSE 93 mg/dL (74-106); POTASSIUM - SERUM 4.5 mmol/L (3.5-5.1); SODIUM 132 mmol/L (136-145); UREA NITROGEN 16 mg/dL (7-18); eGFR NON AFRICAN AMERICAN > 90 mL/min (90-120)
[2018-10-04 08:00] VITALS: BP 126/86
--- NOTE | 2018-10-04 14:57 | NUR ---
PATIENT ADMITTED TO REHAB FROM ACUTE FLOOR. DISCHARGE PLANS ARE FOR HER TO RETURN HOME AND SEE DR. COX IN 2 WEEKS. WILL CONTINUE TO FOLLOW WITH PATIENT.
[2018-10-04 19:59] VITALS: BP 142/76
--- NOTE | 2018-10-05 01:49 | NUR ---
PATIENT EYES CLOSED. RESPIRATIONS 18 & EVEN. BED LOW. ALARM ON. BEDSIDE TABLE & CALL LIGHT WITHIN REACH. WILL CONTINUE TO MONITOR.
[2018-10-05 08:00] VITALS: BP 104/59
--- NOTE | 2018-10-05 08:30 | NUR ---
BROUGHT PT BREAKFAST. SHE IS LAYING IN BED RESTING. CONT OF B/B. CALL LIGHT IN REACH
--- NOTE | 2018-10-05 12:27 | NUR ---
RESTING QUIETLY IN BED. HAS BEEN IN ROOM WITH HER ALL MORNING. SHE DENIES NEEDS OR INCREASED PAIN AT PRESENT. 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 SHE IS STILL WEAK ON LEFT SIDE AND SEEMS TO BE WEAKER ON LEFT TODAY.
--- NOTE | 2018-10-05 19:30 | NUR ---
PT RESTING IN BED WITH EYES OPEN. ALERT AND ORIENTED X 3. DENIES ACUTE DISCOMFORT AT THIS TIME. PT IS SOMEWHAT EMOTIONAL ABOUT HER DIAGNOSIS, AND IS ANXIOUS TO SEE DR DOMINGUEZ THIS EVENING. DAUGHTER IS AT BEDSIDE. INCISION TO SCALP IS HEALED WELL. PT STATES SHE HAS NEW LEFT SIDE WEAKNESS. ASSISTED TO THE BATHROOM WITH CGA. SMALL LOOSE BM NOTED. PT DID OWN ADL CARE. ASSISTED BACK TO BED. SR'S ARE UP X 2 IN BED. CALL LIGHT AND BEDSIDE TABLE ARE WITHIN EASY REACH.
[2018-10-05 20:00] VITALS: BP 108/64
--- NOTE | 2018-10-05 20:15 | NUR ---
DR FREEMAN HERE SEEING PT. NEW ORDERS NOTED.
[2018-10-05 20:26] VITALS: Ht 165.1 cm; Wt 86.6 kg
[2018-10-05 21:09] LABS: BASOPHILS 0 % (0-2); EOSINOPHILS 0 % (0-7); HEMATOCRIT 44.2 % (36.0-48.0); HEMOGLOBIN 14.9 g/dL (12-16); IMMATURE GRANULOCYTES 0.3 % (0-5); LYMPHOCYTES 3.6 % (15-50); MCH 30.2 pg (26.0-34.0); MCHC 33.7 g/dL (31.0-37.0); MCV 89.5 fL (80.0-100.0); MEAN PLATELET VOLUME 9.6 fL (7.4-10.4); MONOCYTES 7.4 % (2-11); NEUTROPHILS 88.7 % (40-80); PLATELET COUNT 118 10x3/uL (130-400); RBC 4.94 10x6/uL (4.00-5.40); RDW 14.8 % (11.5-14.5); WBC 13.7 10x3/uL (4.8-10.8)
[2018-10-05 21:43] LABS: ALBUMIN 2.9 g/dL (3.4-5.0); ANION GAP 11.5 mmol/L (8-16); BILIRUBIN - TOTAL 0.45 mg/dL (0.2-1.3); CALCIUM 8.7 mg/dL (8.5-10.1); POTASSIUM - SERUM 4.5 mmol/L (3.5-5.1); PROTEIN - SERUM 6.1 g/dL (6.4-8.2)
--- NOTE | 2018-10-05 22:23 | NUR ---
PT RESTING IN BED WITH EYES CLOSED. NO ACUTE DISTRESS NOTED.
--- NOTE | 2018-10-06 01:01 | NUR ---
RESTING IN BED WTTH EYES CLOSED.
--- NOTE | 2018-10-06 02:16 | NUR ---
RESTING IN BED WITH RESPIRATIONS ULABORED. WAS SEEN BY DR LYDIA CANDELARIA TONCODY WITH NEW ORDERS RECIEVED. NO DISTRESS NOTED. CALL LIGHT IN REACH.
--- NOTE | 2018-10-06 05:45 | NUR ---
PT ASSISTED TO THE BATHROOM WITH MIN ASSIST TO GET OUT OF BED. SBA FOR ALL OTHER TASKS. SMALL LOOSE BM NOTED. PT TOLERATED AM MED WITHOUT DIFFICULTY. NO FURTHER NEEDS VOICED.
[2018-10-06 08:00] VITALS: BP 96/56
--- NOTE | 2018-10-06 08:00 | NUR ---
Delma FANG RN, DIRECTOR OF REHAB IN THIS MORNING. THIS NURSE WENT OVER PROCEEDURES THAT PATIENT IS TO HAVE TODAY ORDERED BY DR. FREEMAN/DR HERMAN. DUE TO PROCEEDURES NOT BEING COVERED ON THIS UNIT THAT PATIENT WILL NEED TO BED DISCHARGE FROM REHAB AND ADMITTED TO MEDICAL ACUTE CARE UNITE.
[2018-10-06] MEDS ORDERED: DECADRON4 MG PO (08:58)
[2018-10-06] MEDS ORDERED: CELEXA20 MG PO (08:59)
--- NOTE | 2018-10-06 09:00 | NUR ---
DR Deysi CARPENTER IN. WROTE ORDERS FOR DISCHARGE
--- NOTE | 2018-10-06 09:00 | NUR ---
I have reviewed this patient and I concur with the Shift Assessment completed by the Licensed Practical Nurse today this shift.
--- NOTE | 2018-10-06 09:06 | NUR ---
due to new dx. patient discharge from rehab and admitted to acute floor.
--- NOTE | 2018-10-06 09:50 | NUR ---
AGGIE FISHER, FOOD SERVICE SUPERVISOR CALLED IN REGARDS TO PATIENTS DISCHARGE. DISCHARGE ORDERS FAXED. WAITING ON ROOM NUMBER FOR THIS PATIENT
--- NOTE | 2018-10-06 10:49 | NUR ---
AGGIE SYLVESTER, HOUSE SUPERVISIOR CALLED AND GAVE ROOM NUMBER [id number]. REPORT CALLED TO AGGIE JERNIGAN.
--- NOTE | 2018-10-06 11:20 | NUR ---
PATIENT TAKEN UP TO MED II BY STAFF.
[2018-10-08 19:30] VITALS: BP 126/75
--- NOTE | 2018-10-08 19:30 | NUR ---
RECEIVED REPORT. SITTING UP IN BED ALERT AND ORIENTED X4. FAMILY AT BEDSIDE. DENIES ANY NEEDS OR PAIN. LEFT FOREARM IV SL, NO REDNESS OR SWELLING NOTED. CALL LIGHT WITHIN REACH, FALL PRECAUTIONS IN PLACE. WILL CONTINUE TO MONITOR
--- NOTE | 2018-10-09 00:21 | NUR ---
ASSISTED PT TO RESTROOM WITH SBA
--- NOTE | 2018-10-09 02:43 | NUR ---
LYING IN BED ON RIGHT SIDE EYES CLOSED RESTING. NO SIGNS OF DISTRESS NOTED. WILL CONTINUE TO MONITOR
[2018-10-09 08:00] VITALS: BP 134/78
--- NOTE | 2018-10-09 16:05 | NUR ---
VISITING WITH FAMILY IN ROOM
--- NOTE | 2018-10-09 17:53 | NUR ---
RESTING QUIETLY IN BED. ATE A LITTLE SUPPER. DENIES INCREASED PAIN. CALL LIGHT IN REACH
--- NOTE | 2018-10-09 19:21 | NUR ---
RECIEVED LAYING IN BED WITH EYES OPEN AND TV ON. ALERT AND ORIENTED X4. ASSISTED TO B/R. USES A WALKER. ABLE TO AMBULATE WITH MIN ASSIST. RIGHT FOOT DROPPED AND CONT TO HAVE LEFT SIDED WEAKNESS. DENIES ANY NEEDS AT THIS TIME.
[2018-10-09 22:20] VITALS: BP 136/77
--- NOTE | 2018-10-10 04:21 | NUR ---
RESTLESS THIS SHIFT. UP AND DOWN TO B/R SEVERAL TIME. STATES UNABLE TO SLEEP.
[2018-10-10 08:00] VITALS: BP 117/56
--- NOTE | 2018-10-10 14:48 | NUR ---
RESTING QUIETLY IN BED. HAD SHOWER AND A VISIT FROM . SHE C/O INCREASED ANXIETY. POOR BALANCE NOTED. CALL LIGHT IN REACH
--- NOTE | 2018-10-10 19:09 | NUR ---
PATIENT IN FRONT LOBBY WITH FAMILY MEMBERS.
[2018-10-10 19:44] VITALS: BP 142/84
--- NOTE | 2018-10-10 19:44 | NUR ---
PATIENT ARRIVED BACK ON UNIT. ASSISTED TO BATHROOM AND BACK TO BED AND REPOSITIONED FOR COMFORT. CALL LIGHT IN REACH.
--- NOTE | 2018-10-10 23:54 | NUR ---
ASSISTED PATIENT TO BATHROOM USING WALKER AND ONE PERSON ASSIST. PATIENT BACK TO BED AND REPOSITIONED FOR COMFORT. CALL LIGHT IN REACH.
--- NOTE | 2018-10-11 01:38 | NUR ---
ASSISTED PATIENT TO BATHROOM USING WALKER AND ONE PERSON ASSIST. PATIENT BACK TO BED AND REPOSITIONED FOR COMFORT. CALL LIGHT IN REACH.
[2018-10-11 08:00] VITALS: BP 132/72
--- NOTE | 2018-10-11 14:30 | NUR ---
Nutrition follow-up: Diet: Regular with whole milk x 2 with each meal PO intake only ~40% average of last 3 meals Labs reviewed WT: 191# Pt c/o headace Will continue to encourage increased po intake RDN following.
--- NOTE | 2018-10-11 14:51 | NUR ---
WORKING WITH THERAPY
--- NOTE | 2018-10-11 19:20 | NUR ---
PATIENT IN FRONT LOBBY SITTING IN WHEELCHAIR WITH FAMILY MEMBERS PRESENT.
--- NOTE | 2018-10-11 19:25 | NUR ---
PATIENT BACK TO UNIT AND REPOSITIONED IN BED FOR COMFORT. CALL LIGHT IN REACH.
[2018-10-11 20:05] VITALS: BP 96/62
--- NOTE | 2018-10-12 00:24 | NUR ---
PATIENT RESTING QUIETLY IN BED WITH EYES OPEN. DENIES ANY NEEDS AT THIS TIME. CALL LIGHT IN REACH.
--- NOTE | 2018-10-12 02:32 | NUR ---
PATIENT AWAKE AND ASSISTED TO BATHROOM USING WALKER AND ONE PERSON ASSIST. PT. BACK TO BED AND REPOSITIONED FOR COMFORT. CALL LIGHT IN REACH.
[2018-10-12 08:00] VITALS: BP 164/86
--- NOTE | 2018-10-12 08:00 | NUR ---
SHIFT ASSMT COMPLETED.UP TO SIDE OF BED FOR BREAKFAST.CL IN REACH.
--- NOTE | 2018-10-12 19:51 | NUR ---
PATIENT RECEIVED SITTING UP ON SIDE OF BED. ASSESSMENT & VITAL SIGNS DONE. NO C/O PAIN OR DISTRESS. BED LOW. CALL LIGHT WITHIN REACH. WILL CONTINUE TO MONITOR.
[2018-10-12 20:00] VITALS: BP 118/62
--- NOTE | 2018-10-12 21:00 | NUR ---
PATIENT BP 118/62. BP MEDICATIONS HELD.
--- NOTE | 2018-10-12 21:59 | NUR ---
BP 96/52. PAIN MEDICATION EFFECTIVE NUMBER 6.
--- NOTE | 2018-10-13 00:03 | NUR ---
PATIENT EYES CLOSED. RESPIRATIONS 18 & EVEN. BED LOW. CALL LIGHT WITHIN REACH. WILL CONTINUE TO MONITOR.
--- NOTE | 2018-10-13 01:08 | NUR ---
I have reviewed this patient and I concur with the Shift Assessment completed by the Licensed Practical Nurse today this shift.
--- NOTE | 2018-10-13 04:10 | NUR ---
PATIENT EYES OPEN. PATIENT PAIN MEDICATION EFFECTIVE. PAIN LEVEL 6. NO NEEDS AT THIS TIME. BED LOW. ALARM ON. CALL LIGHT WITHIN REACH. WILL CONTINUE TO MONITOR.
[2018-10-13 07:23] LABS: BASOPHILS 0.1 % (0-2); CALC OSMOLALITY 274 mosm/kg (275-300); CALCIUM 8.2 mg/dL (8.5-10.1); CARBON DIOXIDE 31.2 mmol/L (21.0-32.0); CHLORIDE - SERUM 99 mmol/L (98-107); CREATININE - SERUM 0.7 mg/dL (0.6-1.3); EOSINOPHILS 0 % (0-7); GLUCOSE 150 mg/dL (74-106); HEMOGLOBIN 14.7 g/dL (12-16); IMMATURE GRANULOCYTES 0.7 % (0-5); LYMPHOCYTES 9.3 % (15-50); MCH 29.9 pg (26.0-34.0); MCHC 33.4 g/dL (31.0-37.0); MCV 89.4 fL (80.0-100.0); MEAN PLATELET VOLUME 9.5 fL (7.4-10.4); NEUTROPHILS 84.9 % (40-80); PLATELET COUNT 148 10x3/uL (130-400); POTASSIUM - SERUM 4.6 mmol/L (3.5-5.1); RBC 4.92 10x6/uL (4.00-5.40); RDW 15.1 % (11.5-14.5); SODIUM 134 mmol/L (136-145); UREA NITROGEN 25 mg/dL (7-18); WBC 8.5 10x3/uL (4.8-10.8); eGFR NON AFRICAN AMERICAN 87 mL/min (90-120)
[2018-10-13 07:59] VITALS: BP 117/73
--- NOTE | 2018-10-13 08:00 | NUR ---
SHIFT ASSMT COMPLETED.
--- NOTE | 2018-10-13 12:00 | NUR ---
SITTING UP EATING LUNCH.
--- NOTE | 2018-10-13 15:15 | NUR ---
CARE TEAM MEETING: PATIENT IS PROGRESSING WITH THERAPY. PLAN TO DISCHARGE TOMORROW. WILL ADDRESS DISCHARGE NEEDS WITH PATIENT. IRIS ELIZABETH, PRINTING AND STAMPING SUPERVISOR REHAB PD
--- NOTE | 2018-10-13 19:25 | NUR ---
BEDSIDE SHIFT REPORT COMPLETE. SITTING UP IN W/C VISITING WITH FAMILY. NO SIGNS OF DISTRESS NOTED. DENIES ANY NEEDS OR PAIN. CALL LIGHT WITHIN REACH, FALL PRECAUTIONS IN PLACE. WILL CONTINUE TO MONITOR
[2018-10-13 20:00] VITALS: BP 128/76
--- NOTE | 2018-10-14 00:49 | NUR ---
LYING IN BED SUPINE EYES CLOSED RESTING. NO SIGNS OF DISTRESS NOTED. WILL CONTINUE TO MONITOR
--- NOTE | 2018-10-14 02:46 | NUR ---
LYING IN BED SUPINE EYES CLOSED RESTING, NO SIGNS OF DISTRESS NOTED. WILL CONTINUE TO MONITOR
--- NOTE | 2018-10-14 06:33 | NUR ---
LYING IN BED ALERT AND ORIENTED X4. DENIES ANY NEEDS OR PAIN. WILL CONTINUE TO MONITOR
[2018-10-14 08:00] VITALS: BP 122/67
--- NOTE | 2018-10-14 08:00 | NUR ---
SITTING UP IN BED FOR BREAKFAST. LEFT EYE AND SURROUNDING SKIN IS RED. SHE REPORTS PAIN TO LEFT EYE MORE SEVERE THAN PAIN IN TOP OF HEAD. IN ROOM WITH PT. SHE USES WALKER FOR AMBULATION ASST. CALL LIGHT IN REACH
[2018-10-14] MEDS ORDERED: PERCOCET 10-321 EAC1 PO (08:35)
[2018-10-14] MEDS ORDERED: DECADRON4 MG PO (08:35)
[2018-10-14] MEDS ORDERED: VALTREX500 MG PO (08:39)
[2018-10-14] MEDS ORDERED: ATIVAN0.5 MG PO (08:39)
--- NOTE | 2018-10-14 11:30 | NUR ---
[facility] HOME WITH ALL PERSONAL BELONGINGS. MEDS CALLED INTO PHARMACY. WITH PT. REVIEWED MEDS. F/U APPTS, SAFETY. SHE DENIES QUESTIONS AT [facility]. LEFT FLOOR IN WC.
--- NOTE | 2018-10-18 12:21 | NUR ---
CASE MANAGEMENT LATE ENTRY: PATIENT DISCHARGED HOME WITH FAMILY. [facility] WILL PROVIDE THERAP[facility] AT HOME. [facility] TO PROVIDE RESPIRATORY MEDS DELIVERED TO HOME. WHEELCHAIR ORDER PLACED WITH [facility]. FOLLOW UP APPOINTMENTS SCHEDULED WITH DR. FREEMAN 10/29/18 @ 2:00PM AND WITH DR. RUIZ 10/20/ @ 11:15AM. PATIENT CHOICE FORM AND [facility] FORMS SIGNED, COPY GIVEN TO PATIENT AND FILED IN CHART. IRIS ELIZABETH, [employer]ESS [employer]ER RE[facility] PD
--- NOTE | 2018-12-06 11:27 | DS ---
PATIENT:INDIA FINE :45 MEDICAL RECORD: [id number] DISCHARGE SUMMARY ADMISSION DATE: 09/27/18 DISCHARGE DATE: 10/14/18 This is a discharge dated 10/14/2018, from inpatient rehabilitation. PRIMARY DIAGNOSIS: Decreased functional ability and ability to provide activities of daily living secondary to a brain mass status post craniotomy with a new diagnosis of B-cell lymphoma. SECONDARY DIAGNOSES: 1. Tremor. 2. Left-sided weakness. 3. Clotting disorder. 4. Cataracts. 5. Hypertension. 6. History of NV. 7. Thoracic aneurysm. 8. Asthma. 9. Gastroesophageal reflux disease. 10. Irritable bowel syndrome. 11. Osteoarthritis. 12. Depression/anxiety. 13. L1 compression fracture status post kyphoplasty. CONSULTANTS FOLLOWING THIS HOSPITAL STAY: Hem/onc with Dr. Zavala. HOSPITAL COURSE: Full H&P is located elsewhere on the chart on this 72-year-old female who was admitted to inpatient rehab for physical therapy and occupational therapy to improve gait, transfer skills, bed mobility, and activities of daily living to a modified independent level. She was evaluated by PT, OT, and ST and their plans of care were followed. She required long term care for observation and assessment and medication administration as well as wound care and monitoring of surgical incisions. Electrolytes were managed by protocol. She was on inhaled medications for respiratory support and was on a steroid taper. She was started on Celexa for depression. Therapy was hampered somewhat by a transfer to the acute setting for diagnostic testing and staging prior to transfer back to rehab. She was often emotional during her therapy sessions. She was started on sliding scale insulin with fingerstick blood sugars. She was cooperative with therapies, progressing towards goals. Case management was involved for discharge planning. She was considered stable for discharge on 10/14/2018, having met all of her OT goals and 2/3 long-term PT goals and making some progress with speech therapy. DISCHARGE MEDICATIONS: As per discharge medication reconciliation. DISCHARGE DISPOSITION: The patient is discharged home. She will continue her current diet and level of activity. She will have [place] at home for continued long term care, PT and OT. She will have [facility] for nebulizer and nebulized medications as well as a wheelchair. She will follow up with primary care and specialist as directed. At least 30 minutes was spent in this discharge activity. TRANSINT:[id number] Voice Confirmation ID: [id number] DOCUMENT ID: [id number] DISCHARGE SUMMARY REPORT [id number] INDIA FINE Dictated By: STEVO FINE I have interviewed/examined the above patient and agree with these documented findings. BALBIR CARPENTER MD at 1127 at 1128 CC: [id number] DICTATION DATE: 12/05/18 1442 SILVER RECOVERY OPERATOR: 12/05/18 2337 DIS IN 10/14/18 [facility] [address] [place] [address]
== END 2018-10-14 11:30 | disposition home health service (06) | DRG 842 ==
LOC: D.REHAB 16:33
PROVIDERS: Internal Medicine Medical Oncology; ADMIT Emergency Medicine; ATTEND Emergency Medicine
DX: C83.31 Diffuse large B-cell lymphoma, lymph nodes of head, face, and neck (principal); G93.89 Other specified disorders of brain; I10 Essential (primary) hypertension; M19.90 Unspecified osteoarthritis, unspecified site; M21.371 Foot drop, right foot; R27.0 Ataxia, unspecified; Z91.81 History of falling; K21.9 Gastro-esophageal reflux disease without esophagitis; M48.56XD Collapsed vertebra, not elsewhere classified, lumbar region, subsequent encounter for fracture with routine healing

== ENCOUNTER 2018-10-06 11:20 | Inpatient (IN) | payer MEDICARE, BC ==
[~2018-10-06] VITALS: Ht 165.1 cm; Wt 85.3 kg
[~2018-10-06 11:20] MED LIST changes: +CELEXA20 MG PO
[2018-10-06 11:29] VITALS: BP 117/70; BMI 31.3
--- NOTE | 2018-10-06 11:40 | NUR ---
PATIENT ADMITTED TO ROOM 2234. ALERT AND ORIENTED X3. LUNGS CLEAR BILATERALLY IN ALL ORONA. HEART SOUNDS S1 AND S2 HEARD IN ALL ORONA. BOWEL SOUNDS ACTIVE X 4. SKIN INTACT WITHOUT WEAKNESS. FOOT DROP TO RIGHT FOOT. DENIES PAIN. DENIES NEEDS. FALL PRECAUTIONS IN PLACE. BED LOW. CALL SETHI AND PERSONAL ITEMS IN REACH. WILL CONTINUE TO MONITOR.
--- NOTE | 2018-10-06 13:50 | NUR ---
CT CAME TO GET PATIENT. PATIENT STATES NEEDS ATIVAN PRIOR TO GETTING CT. SPOKE WITH DEXTER RICKS. ONE TIME ORDER FOR IV ATIVAN.
--- NOTE | 2018-10-06 15:19 | NUR ---
RESTING IN BED. DENIES NEEDS. DAUGHTER AT BEDSIDE. WILL CONTINUE TO MONITOR.
[2018-10-06 17:21] VITALS: BP 102/56
--- NOTE | 2018-10-06 18:34 | NUR ---
SLEEPING. AT BEDSIDE. DENIES NEEDS. BED LOW. FALL PRECAUTIONS IN PLACE. CALL SETHI AND PERSONAL ITEMS IN REACH.
--- NOTE | 2018-10-06 19:30 | NUR ---
PT LYING IN BED WITHOUT DISTRESS, ALERT AND ORIENTED. DENIES NEEDS, CL IN REACH, WILL CTM
[2018-10-06 20:00] VITALS: BP 108/70
--- NOTE | 2018-10-06 21:40 | NUR ---
PT OFF AND ON CRYING, UPSET ABOUT DIAGNOSIS AND STATING "IT JUST SEEMS TO BE ONE THING AFTER ANOTHER." REQUESTED AND GIVEN ATIVAN. STATES PAIN 8/10 IN HEAD, GAVE ULTRAM ORDERED. DENIES OTHER NEEDS
[2018-10-07] VITALS: BP 123/80
[2018-10-07 04:00] VITALS: BP 141/91
--- NOTE | 2018-10-07 05:20 | NUR ---
PT GETTING ANXIOUS ABOUT PROCEDURE THIS AM, REQUESTED AND GIVEN ATIVAN. GAVE ULTRAM FOR PAIN 8/10 IN HEAD. AT BEDSIDE, DENIES OTHER NEEDS, CL IN REACH
[2018-10-07 05:28] LABS: BASOPHILS 0 % (0-2); EOSINOPHILS 0 % (0-7); HEMATOCRIT 41.7 % (36.0-48.0); HEMOGLOBIN 13.9 g/dL (12-16); IMMATURE GRANULOCYTES 0.4 % (0-5); LYMPHOCYTES 7.2 % (15-50); MCH 29.6 pg (26.0-34.0); MCHC 33.3 g/dL (31.0-37.0); MCV 88.9 fL (80.0-100.0); MEAN PLATELET VOLUME 9.6 fL (7.4-10.4); MONOCYTES 5.1 % (2-11); NEUTROPHILS 87.3 % (40-80); PLATELET COUNT 122 10x3/uL (130-400); RBC 4.69 10x6/uL (4.00-5.40); RDW 15.1 % (11.5-14.5)
[2018-10-07 05:41] LABS: CALC OSMOLALITY 278 mosm/kg (275-300); CALCIUM 8.3 mg/dL (8.5-10.1); CARBON DIOXIDE 27.7 mmol/L (21.0-32.0); CHLORIDE - SERUM 102 mmol/L (98-107); GLUCOSE 129 mg/dL (74-106); POTASSIUM - SERUM 4.4 mmol/L (3.5-5.1); SODIUM 136 mmol/L (136-145); UREA NITROGEN 26 mg/dL (7-18); eGFR NON AFRICAN AMERICAN 87 mL/min (90-120)
[2018-10-07 05:43] LABS: CREATININE - SERUM 0.7 mg/dL (0.6-1.3)
[2018-10-07 05:45] LABS: WBC 7.1 10x3/uL (4.8-10.8)
[2018-10-07 05:48] LABS: INR 1.07 (0.85-1.17); PROTIME 13.4 SECONDS (11.6-15.0)
[2018-10-07 08:59] VITALS: BP 159/81
--- NOTE | 2018-10-07 10:40 | NUR ---
RECEIVED FROM BONE BIOPSY WITHOUT REPORT. PT LAYING IN BED LAYING ON HER LF SIDE SLEEPING BUT EASILY AROUSED BY SOUND. DRESSING APPLIED TO THE COCCYX AREA. PT STATED THAT SHE WAS NOT IN ANY PAIN OR DISCOMFORT. BP- 136/79. HR-54, O2 VIA ROOM AIR- 93% AND RR- 15. BED IN THE LOWEST POSITON AND ENCOURGED HER TO USE HER CALL LIGHT. WILL CONTINUE TO MONITOR.
[2018-10-07 13:43] VITALS: BP 136/79
[2018-10-07 14:38] VITALS: Ht 165.1 cm; Wt 85.3 kg
[2018-10-07 17:24] VITALS: BP 101/49
--- NOTE | 2018-10-07 18:30 | NUR ---
PASSED BY ROOM TO MAKE SURE THAT PRN ATIVAN FOR ANXIETY WAS WORKING FOR PT. UPON ENTERING THE ROOM SAW PT ITCHING LEGS AND CRYING. STAYED WITH PT REASSURING HER THAT SHE WAS IN A SAFE ENVIRONMENT AND THAT HER MEDICATION SHOULD START TO TAKE EFFECT. APPLIED A COOL WASH CLOTH TO HER FACE AND INSTRUCTED HER TO TAKE DEEP BREATHS. STAYED WITH PT UNTIL FAMILY ARRIVED. ONCE FAMILY ARRIVED PT STATED THAT SHE WAS COMFORTABLE. WILL CONTINUE TO MONITOR.
--- NOTE | 2018-10-07 19:40 | NUR ---
PT SITTING UP IN BED, DAUGHTER IN ROOM AND . CL IN REACH. DENIES NEEDS OR PAIN. BED IN LOW SIDE RAILS X2. SCDS ON. RESP EVEN AND UNLABORED. WILL CONTINUE TO MONITOR.
[2018-10-07 20:00] VITALS: BP 135/69
--- NOTE | 2018-10-07 22:00 | NUR ---
ASSISTED TO AND FROM BATHROOM. REQUESTED SCD TO COME OFF FOR A COUPLE OF HRS THEN WILL PUT THEM BACK ON. WCTM
[2018-10-08] VITALS: BP 104/65
--- NOTE | 2018-10-08 00:25 | NUR ---
PT REQUESTED ANXIETY BUT INFORMED PT AND EDUCATED SHE COULD ONLY HAVE THAT PILL TWICE A DAY AND IF SHE TAKES IT THIS EARLY SHE ONLY GETS ONE MORE DOSE FOR THE DAY. PT CHANGED MIND TO TYLENOL. HUGO
--- NOTE | 2018-10-08 01:57 | NUR ---
I have reviewed this patient and I concur with the Shift Assessment completed by the Licensed Practical Nurse today this shift.
--- NOTE | 2018-10-08 02:45 | NUR ---
ASSISTED TO AND FROM BATHROOM. CL IN REACH. BACK IN BED. REQUESTING SOMETHING FOR PAIN. WCTM TRAMADOL WAS GIVEN PER MAY.
[2018-10-08 04:00] VITALS: BP 117/77
[2018-10-08 04:54] LABS: BASOPHILS 0 % (0-2); EOSINOPHILS 0 % (0-7); HEMATOCRIT 43.8 % (36.0-48.0); HEMOGLOBIN 14.5 g/dL (12-16); IMMATURE GRANULOCYTES 0.3 % (0-5); LYMPHOCYTES 12.3 % (15-50); MCH 29.6 pg (26.0-34.0); MCHC 33.1 g/dL (31.0-37.0); MCV 89.4 fL (80.0-100.0); MEAN PLATELET VOLUME 9.6 fL (7.4-10.4); MONOCYTES 6.2 % (2-11); NEUTROPHILS 81.2 % (40-80); PLATELET COUNT 130 10x3/uL (130-400); RDW 14.9 % (11.5-14.5); WBC 6.1 10x3/uL (4.8-10.8)
[2018-10-08 05:10] LABS: CALC OSMOLALITY 277 mosm/kg (275-300); CALCIUM 8.5 mg/dL (8.5-10.1); CARBON DIOXIDE 31.2 mmol/L (21.0-32.0); CHLORIDE - SERUM 102 mmol/L (98-107); CREATININE - SERUM 0.7 mg/dL (0.6-1.3); GLUCOSE 122 mg/dL (74-106); POTASSIUM - SERUM 4.6 mmol/L (3.5-5.1); SODIUM 137 mmol/L (136-145); UREA NITROGEN 20 mg/dL (7-18); eGFR NON AFRICAN AMERICAN 87 mL/min (90-120)
--- NOTE | 2018-10-08 09:00 | NUR ---
ALERT AND ORIENTED X4. DENIES ANY PAIN OR DISCOMFORT AT THIS TIME.LIMITED ROM TO RLE AND LUE. ENCOURAGED TO USE CALL LIGHT FOR ASSIST AND VERBALIZED UNDERSTANDING
[2018-10-08 09:01] VITALS: BP 125/66
[2018-10-08 12:50] VITALS: BP 130/78
--- NOTE | 2018-10-08 16:52 | EC ---
PATIENT:INDIA FINE DATE OF SERVICE: 10/06/18 SEX: F MEDICAL RECORD: [id number] DATE OF : 45 LOCATION:D.[id number] AGE OF PATIENT: 72 ADMISSION DATE: 10/06/18 REFERRING PHYSICIAN: INTERPRETING PHYSICIAN: AYANA RODRIGUEZ MD ECHOCARDIOGRAM REPORT ECHO CHARGES 4 ECHO COMPLETE Date: 10/08/18 CLINICAL DIAGNOSIS: LYMPHOMA ECHOCARDIOGRAPHIC MEASUREMENTS (adult normal given) AC root (d.<3.7cm) 3.2 cm LV Septum d (<1.2 cm> 1.4 cm Valve Excursion 1.5 cm LV Septum (systole) 2.1 cm Left Atria (s.<4.0cm> 3.9 cm LVPW d(<1.2cm) 1.3 cm RV (d.<2.3cm) 2.4 cm LVPW (sytole) 1.8 cm LV diastole(<5.6CM) 5.8 cm MV E-F(>70mm/sec) cm LV systole 3.7 cm LVOT Diameter 1.8 cm MV exc.(>10mm) cm Est.ejection fraction (50-75%) % DOPPLER: LVIT cm/sec A 106 cm/sec E 66.0 cm/sec LA cm/sec RVSP 30.0 mmHg LVOT 147 cm/sec AOP1/2T m/s Asc. Ao 150 cm/sec RVOT 81.0 cm/sec RA cm/sec PA 116 cm/sec AV Gradient Peak 9.0 mmHg AV Mean 5.2 mmHg AV Area 2.5 cm MV Gradient Peak 4.2 mmHg MV Mean 1.4 mmHg MV Area cm COMMENTS: Relations Liaison: 1 NICK DA SILVA Drafter Geological: 2 Dr. Hastings TAPE# PACS Pericardial Effusion N DATE OF SERVICE: 10/08/2018 PROCEDURE: Echocardiogram. FINDINGS: 1. Left ventricular chamber size is within normal limits. Left ventricular systolic function is normal, ejection fraction 55%. 2. Left atrium, right atrium, and right ventricle chamber sizes are within normal limits. 3. Valvular structures have normal structure and motion. ECHOCARDIOGRAM REPORT [id number] INDIA FINE 4. Doppler interrogation reveals mild aortic insufficiency, mild tricuspid regurgitation, no other valvular insufficiency or stenosis. Pulmonary systolic pressure is estimated at 30 mmHg. 5. No evidence of pericardial effusion or left ventricular thrombus. TRANSINT:[id number] Voice Confirmation ID: [id number] DOCUMENT ID: [id number] AYANA RODRIGUEZ MD at 1652 CC: [id number] DICTATION DATE: 10/08/18 1302 BOAT RIGGER: 10/08/18 1315 ADM IN [facility] [address] [place] [address]
--- NOTE | 2018-10-08 16:55 | NUR ---
OT NOTE: PT COMPLETE SIT TO STAND WITH SBA/CGA. PT COMPLETED EOB SITTING WITH SBA. PT COMPLETED SROM WITH LUE. PT COMPLETED GROOMING AT EOB WITH SET UP. THANK YOU, LOCO WINN
--- NOTE | 2018-10-08 17:08 | MORECARE ---
CASE MANAGEMENT DISCHARGE SUMMARY PATIENT: INDIA FINE UNIT: [id number] ADM DATE: 10/06/18 AGE: 72 : 45 SEX: F ROOM/BED: D.2234 AUTHOR: SANDRINE JENKINS PHYSICIAN: REFERRING PHYSICIAN: BETTY FREEMAN MD DATE OF SERVICE: 10/08/18 Discharge Plan Patient Name: INDIA FINE Facility: [facility]:[place] : 1945 Planned Disposition: Inpatient Rehab Anticipated Discharge Date: 10/08/18 Discharge Date: Expected LOS: 2 Initial Reviewer: [email or web address] Initial Review Date: 10/08/2018 Generated: 10/08/18 6:07 pm Patient Name: INDIA FINE Page [phone] at 1708 All edits/amendments must be made on the electronic document DICTATION DATE: 10/08/181706 FITTING ROOM CHECKER: BERRY 10/08/181706 RPT#: [id number] DC DATE: STATUS: ADM IN [facility] [address] [place] [address] END OF REPORT
--- NOTE | 2018-10-08 17:15 | MORECARE ---
CASE MANAGEMENT DISCHARGE SUMMARY PATIENT: INDIA FINE UNIT: [id number] ADM DATE: 10/06/18 AGE: 72 : 45 SEX: F ROOM/BED: D.2234 AUTHOR: SANDRINE JENKINS PHYSICIAN: REFERRING PHYSICIAN: BETTY ZAVALA MD DATE OF SERVICE: 10/08/18 Discharge Plan Patient Name: INDIA FINE [facility] [facility] 1945 Planned Disposition: Inpatient Rehab Anticipated Discharge Date: 10/08/18 Discharge Date: Expected LOS: 2 Initial Reviewer: [email or web address] Initial Review Date: 10/08/2018 Generated: 10/08/18 6:15 pm Comments DCP- Discharge Planning Updated by [id number]: Luciabakari Leon on 10/08/18 4:[address] Zavala called and informed branch operations coordinator that patient does not want any treatment for her cancer and that she may be discharged home or to inpatient rehab. I spoke with the patient and she would like to go to inpatient rehab. She states she was doing better with therapy. Her family is present in the room and agrees. I spoke with Gissell Alas in inpatient rehab and they will accept her tonight. Discharging tonight to inpatient rehab. Last DP export: 10/08/18 4:08 p Patient Name: INDIA FINE Page [phone] at 1715 All edits/amendments must be made on the electronic document DICTATION DATE: 10/08/181714 SMOKE EATER: BERRY 10/08/181714 RPT#: [id number] DC DATE: STATUS: ADM IN [facility] [address] [place] [address] END OF REPORT
[2018-10-08 17:44] VITALS: BP 127/73
--- NOTE | 2018-10-08 18:17 | NUR ---
REPORT CALLLED TO CANDELARIA AT REHAB. PT VERBALIZED UNDERSTANDING OF DISCHARGE INSTRUCTIONS. CONTINUED IV ACCESS AND DENIES ANY PAIN OR DISCOMFORT AT DISCHARGE. STABLE AT TIME OF DEPARTURE.
[2018-10-08 19:30] VITALS: BP 126/75
--- NOTE | 2018-10-08 19:30 | NUR ---
RECEIVED REPORT. SITTING UP ON SIDE OF BED ALERT AND ORIENTED X4. FAMILY AT BEDSIDE NOTED. DENIES ANY NEEDS OR PAIN. VS STABLE, SHIFT ASSESSMENT COMPLETE. CALL LIGHT WITHIN REACH, FALL PRECAUTIONS IN PLACE. WILL CONTINUE TO MONITOR
--- NOTE | 2018-10-09 00:21 | NUR ---
ASSISTED TO RESTROOM WITH SBA.
--- NOTE | 2018-10-11 11:51 | MORECARE ---
CASE MANAGEMENT DISCHARGE SUMMARY PATIENT: INDIA FINE UNIT: [id number] ADM DATE: 10/06/18 AGE: 72 : 45 SEX: F ROOM/BED: D.2234 AUTHOR: SANDRINE JENKINS PHYSICIAN: REFERRING PHYSICIAN: BETTY ZAVALA MD DATE OF SERVICE: 10/11/18 Discharge Plan Patient Name: INDIA FINE Facility: [facility]:[place] : 1945 Planned Disposition: Inpatient Rehab Anticipated Discharge Date: 10/08/18 Discharge Date: 10/08/2018 Expected LOS: 2 Initial Reviewer: [id number] Initial Review Date: 10/08/2018 Generated: 10/11/18 12:51 pm Comments DCP- Discharge Planning Updated by [email or web address]: Lucia Carolyn on 10/08/18 4:[address] Zavala called and informed office service coordinator that patient does not want any treatment for her cancer and that she may be discharged home or to inpatient rehab. I spoke with the patient and she would like to go to inpatient rehab. She states she was doing better with therapy. Her family is present in the room and agrees. I spoke with Gissell Alas in inpatient rehab and they will accept her tonight. Discharging tonight to inpatient rehab. Last DP export: 10/08/18 4:15 p Patient Name: INDIA FINE Page [phone] at 1151 All edits/amendments must be made on the electronic document DICTATION DATE: 10/11/18 1150 DEHYDRATOR TENDER: BERRY 10/11/18 1150 RPT#: [id number] DC DATE:10/08/18 STATUS: DIS IN [facility] [address] [facility] [place] [address] END OF REPORT
== END 2018-10-08 19:54 | DRG 841 ==
LOC: D.MS 11:20 → D.REHAB 10-08 19:54 → D.MS 10-08 19:54
PROVIDERS: Internal Medicine Nephrology; Specialist; ADMIT Internal Medicine Medical Oncology; ATTEND Internal Medicine Medical Oncology
DX: C83.30 Diffuse large B-cell lymphoma, unspecified site (principal); E87.1 Hypo-osmolality and hyponatremia; I10 Essential (primary) hypertension; I25.10 Atherosclerotic heart disease of native coronary artery without angina pectoris; M21.371 Foot drop, right foot

== ENCOUNTER 2018-11-06 15:24 | Inpatient (IN) | payer MEDICARE, BC ==
[~2018-11-06] VITALS: Ht 165.1 cm; Wt 85.3 kg
[~2018-11-06 15:24] MED LIST changes: +PERCOCET 10-321 EAC1 PO; +VALTREX500 MG PO
[2018-11-06 16:43] LABS: BASOPHILS 0.1 % (0-2); EOSINOPHILS 0.1 % (0-7); HEMATOCRIT 49.3 % (36.0-48.0); HEMOGLOBIN 16.1 g/dL (12-16); LYMPHOCYTES 12.3 % (15-50); MCH 30.8 pg (26.0-34.0); MCHC 32.7 g/dL (31.0-37.0); MCV 94.3 fL (80.0-100.0); MEAN PLATELET VOLUME 9.2 fL (7.4-10.4); NEUTROPHILS 77.5 % (40-80); PLATELET COUNT 177 10x3/uL (130-400); RBC 5.23 10x6/uL (4.00-5.40); RDW 18.3 % (11.5-14.5); WBC 13.7 10x3/uL (4.8-10.8)
[2018-11-06 16:51] LABS: APTT 20.5 SECONDS (22.8-39.4); INR 0.95 (0.85-1.17); PROTIME 12.2 SECONDS (11.6-15.0)
[2018-11-06 16:56] LABS: APPEARANCE CLEAR (CLEAR); BACTERIA MODERATE /hpf (NONE SEEN); BILIRUBIN NEGATIVE (NEGATIVE); COLOR YELLOW (YELLOW); GLUCOSE NEGATIVE (NEGATIVE); KETONE NEGATIVE (NEGATIVE); NITRITE POSITIVE (NEGATIVE); PROTEIN NEGATIVE (NEGATIVE); RED CELLS - URINE NONE SEEN /hpf (0-5); SPECIFIC GRAVITY 1.025 (1.005-1.020); UROBILINOGEN NORMAL (NORMAL); WHITE CELLS - URINE 0-5 /hpf (0-5)
[2018-11-06 16:58] LABS: ALKALINE PHOSPHATASE 142 U/L (46-116); ALT (SGPT) 34 U/L (10-68); BILIRUBIN - TOTAL 0.44 mg/dL (0.2-1.3); CALC OSMOLALITY 285 mosm/kg (275-300); CALCIUM 8.6 mg/dL (8.5-10.1); CARBON DIOXIDE 27.7 mmol/L (21.0-32.0); CHLORIDE - SERUM 102 mmol/L (98-107); CREATININE - SERUM 0.9 mg/dL (0.6-1.3); GLUCOSE 115 mg/dL (74-106); POTASSIUM - SERUM 3.6 mmol/L (3.5-5.1); PROTEIN - SERUM 5.9 g/dL (6.4-8.2); SODIUM 140 mmol/L (136-145); UREA NITROGEN 28 mg/dL (7-18); eGFR NON AFRICAN AMERICAN 65 mL/min (90-120)
[2018-11-06 17:10] LABS: CKMB 1.9 U/L (0.0-3.6); CREATINE KINASE 28 UL (21-215); THYROID STIMULATING HORMONE 1.38 uIU/mL (0.36-3.74)
--- NOTE | 2018-11-06 17:45 | NUR ---
I have reviewed this patient and I concur with the Shift Assessment completed by the Licensed Practical Nurse today this shift.
[2018-11-06 18:40] VITALS: BP 156/71
[2018-11-06 20:13] LABS: UDS - AMPHET NEGATIVE QUAL (NEGATIVE); UDS - BARB NEGATIVE QUAL (NEGATIVE); UDS - BENZO NEGATIVE QUAL (NEGATIVE); UDS - COCAINE NEGATIVE QUAL (NEGATIVE); UDS - OPIATE POSITIVE QUAL (NEGATIVE); UDS - PCP NEGATIVE QUAL (NEGATIVE); UDS - THC NEGATIVE QUAL (NEGATIVE)
[2018-11-06] MEDS ORDERED: LYRICA75 MG PO (20:44)
[2018-11-06] MEDS ORDERED: NEURONTIN 300300 MG PO (20:45)
[2018-11-06] MEDS ORDERED: VALTREX1000 MG PO (20:45)
--- NOTE | 2018-11-06 21:10 | NUR ---
PT ARRIVED ON UNIT VIA WHEELCHAIR, ESCORTED BY DAUGHTER AND ER NURSE. POSITIONED IN BED FOR COMFORT. PT ON AIRBORNE ISOLATION DUE TO SHINGLES.
--- NOTE | 2018-11-06 21:20 | NUR ---
CALLED DR PEDERSON AND RECEIVED ORDERS TO RE-START HOME MEDICATIONS.
[2018-11-06 21:38] VITALS: BP 172/89; BMI 31.3
--- NOTE | 2018-11-06 22:31 | NUR ---
HS MEDICATIONS GIVEN. WILL CONTINUE TO MONITOR FOR NEEDS.
[2018-11-07] VITALS: BP 150/70
[2018-11-07 04:00] VITALS: BP 146/81
[2018-11-07 06:05] LABS: BASOPHILS 0.1 % (0-2); EOSINOPHILS 0.1 % (0-7); HEMATOCRIT 46.2 % (36.0-48.0); HEMOGLOBIN 15.5 g/dL (12-16); IMMATURE GRANULOCYTES 1.5 % (0-5); LYMPHOCYTES 8.1 % (15-50); MCH 31.3 pg (26.0-34.0); MCHC 33.5 g/dL (31.0-37.0); MCV 93.1 fL (80.0-100.0); MEAN PLATELET VOLUME 9.9 fL (7.4-10.4); MONOCYTES 5.2 % (2-11); PLATELET COUNT 205 10x3/uL (130-400); RBC 4.96 10x6/uL (4.00-5.40); RDW 18.3 % (11.5-14.5); WBC 15.1 10x3/uL (4.8-10.8)
[2018-11-07 06:27] LABS: CALC OSMOLALITY 272 mosm/kg (275-300); CALCIUM 8.4 mg/dL (8.5-10.1); CARBON DIOXIDE 24.2 mmol/L (21.0-32.0); CHLORIDE - SERUM 101 mmol/L (98-107); CREATININE - SERUM 0.6 mg/dL (0.6-1.3); GLUCOSE 109 mg/dL (74-106); POTASSIUM - SERUM 4.3 mmol/L (3.5-5.1); SODIUM 134 mmol/L (136-145); UREA NITROGEN 24 mg/dL (7-18); eGFR NON AFRICAN AMERICAN > 90 mL/min (90-120)
[2018-11-07 08:20] VITALS: BP 160/88
[2018-11-07 10:10] VITALS: BP 96/54
[2018-11-07 11:54] LABS: CKMB 1.5 U/L (0.0-3.6); CREATINE KINASE 134 UL (21-215)
[2018-11-07 11:55] LABS: TROPONIN-I < 0.017 ng/mL (0.000-0.060)
--- NOTE | 2018-11-07 12:58 | NUR ---
PT RESTING IN BED. NO SIGNS OF DISTRESS. IV TO RIGHT FORARM. COMPLAINS OF PAIN IN FACE HAS REDDENED AREAS TO FACE AND HEAD. MEDICATIONS HAVE BEEN GIVEN. DENIES ANY FUTHER NEED AT THIS TIME. CALL LIGHT IN REACH. BED LOW POSITION. FAMILY AT BEDSIDE.
[2018-11-07 16:39] VITALS: BP 100/54
[2018-11-07 17:53] LABS: CKMB 1.1 U/L (0.0-3.6); CREATINE KINASE 20 UL (21-215); TROPONIN-I < 0.017 ng/mL (0.000-0.060)
--- NOTE | 2018-11-07 18:22 | NUR ---
I have reviewed this patient and I concur with the Shift Assessment completed by the Licensed Practical Nurse today this shift.
--- NOTE | 2018-11-07 20:31 | NUR ---
UPON ENTERING ROOM PT WAS SITTING ON THE SIDE OF THE BED ROCKING AND CRYING. GAVE PRN DOSE OF ATIVAN. WILL CONTIUE TO MONITOR.
--- NOTE | 2018-11-07 21:00 | NUR ---
UPON ENTERING ROOM PT IS STILL CRYING AND ROCKING IN BED. VOICES THAT HER PAIN LEVEL IN HEAD IS 10/10, GAVE PRN MORPHINE. HELP BP MED DUE TO BP ALREADY BEING 100/54 AND HAD PAIN MED. WILL REASSES BP AND CONTINUE TO MONITOR.
--- NOTE | 2018-11-07 23:30 | NUR ---
REASSED BP 120/74, GAVE SCHEDULED BP MED [facility]. REASSED BP AT 00:00- 140/74. WILL CONTIUE TO FESTUS.
[2018-11-07 23:55] LABS: CKMB 0.9 U/L (0.0-3.6); CREATINE KINASE 25 UL (21-215); TROPONIN-I < 0.017 ng/mL (0.000-0.060)
[2018-11-08] VITALS: BP 140/78
[2018-11-08 04:02] LABS: BASOPHILS 0.1 % (0-2); EOSINOPHILS 0 % (0-7); HEMATOCRIT 44.3 % (36.0-48.0); HEMOGLOBIN 14.8 g/dL (12-16); IMMATURE GRANULOCYTES 2.1 % (0-5); MCH 30.8 pg (26.0-34.0); MCHC 33.4 g/dL (31.0-37.0); MCV 92.1 fL (80.0-100.0); MEAN PLATELET VOLUME 9.1 fL (7.4-10.4); MONOCYTES 5.7 % (2-11); NEUTROPHILS 81.1 % (40-80); PLATELET COUNT 177 10x3/uL (130-400); RBC 4.81 10x6/uL (4.00-5.40); RDW 17.8 % (11.5-14.5)
[2018-11-08 04:20] LABS: ALBUMIN 2.6 g/dL (3.4-5.0); ALKALINE PHOSPHATASE 95 U/L (46-116); ALT (SGPT) 31 U/L (10-68); BILIRUBIN - TOTAL 0.61 mg/dL (0.2-1.3); CALC OSMOLALITY 272 mosm/kg (275-300); CALCIUM 8.4 mg/dL (8.5-10.1); CARBON DIOXIDE 26.5 mmol/L (21.0-32.0); CHLORIDE - SERUM 101 mmol/L (98-107); CREATININE - SERUM 0.7 mg/dL (0.6-1.3); GLUCOSE 124 mg/dL (74-106); POTASSIUM - SERUM 4.7 mmol/L (3.5-5.1); PROTEIN - SERUM 5.3 g/dL (6.4-8.2); SODIUM 134 mmol/L (136-145); UREA NITROGEN 23 mg/dL (7-18); eGFR NON AFRICAN AMERICAN 87 mL/min (90-120)
[2018-11-08 04:26] LABS: WBC 11.3 10x3/uL (4.8-10.8)
--- NOTE | 2018-11-08 07:30 | NUR ---
PT RESTING IN BED WITH COMPLAINTS OF PAIN TO RIGHT FOREHEAD RATING PAIN 8/10 AT THIS TIME. PAIN MEDICATION TO BE ADMINISTERED PER MD ORDERS. SALINE LOC TO RIGHT HAND, SITE WITHOUT REDNESS OR EDEMA. DENIES FURTHER NEEDS AT THIS TIME. CL WITHIN REACH. ENCOURAGED TO CALL WITH NEEDS. CONTINUE POC
[2018-11-08 08:49] VITALS: BP 155/80
[2018-11-08 12:09] VITALS: Ht 165.1 cm; Wt 85.3 kg
[2018-11-08 12:44] VITALS: BP 118/78
--- NOTE | 2018-11-08 14:33 | NUR ---
pts shingles are dry and crusted. able to pull out of droplet isolation per edgar javier rn
--- NOTE | 2018-11-08 15:33 | NUR ---
OT NOTE: PT COMPLETED COMPLETED EOB SITTING WITH SBA. PT COMPLETED SIT TO STAND WITH CGA. PT COMPLETED GROOMING TASK AT EOB WITH SET UP. THANK YOU, LOCO WINN
[2018-11-08 17:55] VITALS: BP 117/70
--- NOTE | 2018-11-08 19:31 | NUR ---
PATIENT IN BED RESTING WITH FAMILY AT BEDSIDE. ALERT AND ORENTED ABLE TO VOICE NEEDS AND WANTS TO STAFF. IV TO RIGHT HAND S/L, ON ROOM AIR.CALL LIGHT AND WATER IN REACH, BED LOW.
[2018-11-08 20:00] VITALS: BP 103/62
[2018-11-09 04:00] VITALS: BP 132/86
[2018-11-09 06:05] LABS: BASOPHILS 0.1 % (0-2); EOSINOPHILS 0 % (0-7); HEMATOCRIT 45.4 % (36.0-48.0); HEMOGLOBIN 15.2 g/dL (12-16); LYMPHOCYTES 10.1 % (15-50); MCH 31.1 pg (26.0-34.0); MCHC 33.5 g/dL (31.0-37.0); MEAN PLATELET VOLUME 9.6 fL (7.4-10.4); MONOCYTES 6.1 % (2-11); NEUTROPHILS 81.7 % (40-80); PLATELET COUNT 179 10x3/uL (130-400); RBC 4.88 10x6/uL (4.00-5.40); RDW 18.4 % (11.5-14.5); WBC 11.7 10x3/uL (4.8-10.8)
[2018-11-09 06:28] LABS: ALBUMIN 2.7 g/dL (3.4-5.0); ANION GAP 11.1 mmol/L (8-16); BILIRUBIN - TOTAL 0.53 mg/dL (0.2-1.3); CALCIUM 8.4 mg/dL (8.5-10.1); CARBON DIOXIDE 27.2 mmol/L (21.0-32.0); MAGNESIUM - SERUM 2.3 mg/dL (1.8-2.4); POTASSIUM - SERUM 4.3 mmol/L (3.5-5.1); PROTEIN - SERUM 5.7 g/dL (6.4-8.2)
[2018-11-09 06:31] LABS: CREATININE - SERUM 0.9 mg/dL (0.6-1.3)
--- NOTE | 2018-11-09 07:15 | NUR ---
PT RESTING QUIETLY IN BED. NO ACUTE DISTRESS NOTED AT THIS TIME. REPORTS PAIN TO RIGHT FOREHEAD 3/10 AT THIS TIME. SALINE LOC TO LEFT HAND INTACT, SITE WITHOUT REDNESS OR EDEMA. LEXA ALARM ACTIVATED. ASSISTED PT TO BSC AT THIS TIME. DENIES FURTHER NEEDS AT THIS TIME. CL WITHIN REACH. ENCOURAGED TO CALL WITH NEEDS. CONTINUE POC
[2018-11-09 09:38] VITALS: BP 113/75
[2018-11-09 12:11] VITALS: BP 119/71
--- NOTE | 2018-11-09 13:39 | NUR ---
IV SITED TO RFA AFTER 2 ATTEMPTS.
--- NOTE | 2018-11-09 13:57 | NUR ---
20 GAUGE IV STARTED IN LEFT ARM ON THE SECOND ATTEMPT, FLUSHED WITHOUT DIFFICULTY, SECURED WITH TEGADERM NO REDNESS OR EDEMA AT SITE.
--- NOTE | 2018-11-09 14:08 | MORECARE ---
CASE MANAGEMENT DISCHARGE SUMMARY PATIENT: INDIA FINE UNIT: [id number] ADM DATE: 11/07/18 AGE: 72 : 45 SEX: F ROOM/BED: D.2201 AUTHOR: SANDRINE JENKINS PHYSICIAN: REFERRING PHYSICIAN: KULWANT PEDERSON MD DATE OF SERVICE: 11/09/18 Discharge Plan Patient Name: INDIA FINE [facility] [facility] 1945 Planned Disposition: Long-Term Facility Anticipated Discharge Date: Discharge Date: Expected LOS: Initial Reviewer: [email or web address] Initial Review Date: 11/06/2018 Generated: 11/09/18 3:07 pm DCPIA - Discharge Planning Initial Assessment Updated by [email or web address]: Rochelle Godfrey on 11/09/18 2:02 pm * Is the patient Alert and Oriented? Yes * How many steps to enter\exit or inside your home? * PCP SARA * Pharm[facility] * Preadmission Environment Home with Family * ADLs Independent * Equipment Bedside Commode Cane Rolling Walker Shower Chair * List name and contact numbers for known caregivers / representatives who currently or will assist patient after discharge: ESTRELLA FAROOQ (DAUGHTER) [phone] * Verbal permission to speak to the caregivers and representatives has been obtained from the patient. Yes * Community resources currently utilized Home Health * Please name any agencies selected above. [facility] * Additional services required to return to the preadmission environment? Yes * Can the patient safely return to the preadmission environment? No * Has this patient been hospitalized within the prior 30 days at any hospital? Yes Patient Name: INDIA FINE Page [id number] at 1408 All edits/amendments must be made on the electronic document DICTATION DATE: 11/09/181406 SHAREHOLDER: BERRY 11/09/181406 RPT#: [id number] DC DATE: STATUS: ADM IN [facility] [address] [place] [address] END OF REPORT
--- NOTE | 2018-11-09 14:16 | MORECARE ---
CASE MANAGEMENT DISCHARGE SUMMARY PATIENT: INDIA FINE UNIT: [id number] ADM DATE: 11/07/18 AGE: 72 : 45 SEX: F ROOM/BED: D.2201 AUTHOR: SANDRINE JENKINS PHYSICIAN: REFERRING PHYSICIAN: KULWANT PEDERSON MD DATE OF SERVICE: 11/09/18 Discharge Plan Patient Name: INDIA FINE Facility: [facility]:[place] : 1945 Planned Disposition: Halfway Facility Anticipated Discharge Date: Discharge Date: Expected LOS: Initial Reviewer: [email or web address] Initial Review Date: 11/06/2018 Generated: 11/09/18 3:15 pm Comments DCP- Discharge Planning Updated by [email or web address]: Rochelle Godfrey on 11/09/18 1:[address] Patient Name: INDIA FINE Admission Status: ER Accout number: [id number] Admission Date: 11-07-2018 : 1945 Admission Diagnosis:METABOLIC ENCEPHALOPATHY Attending: KULWANT PEDERSON Current LOS: 2 Anticipated DC Date: Planned Disposition: Halfway Facility Primary Insurance: MEDICARE A & B Discharge Planning Comments: CM met with patient & daughterJohn to complete initial dc planning assessment. CM educated patient on the CM role and verbal consent given by patient to complete assessment. Patient lives at home with her where she needs more help than her can give at this point.. At discharge patient will need to go to a skilled facility and feels this is a safe discharge. CM discussed availability of home health, rehab services, and medical equipment. She has [facility] and has a BSC, Cane, walker, and Rosie brace. I spoke with the daughter at length and she stated that she thinks that she needs skilled rehab and would like [facility] and rehab, because Dr Dumont is her MD. She stated that she will talk to her sister and dad and let me know. ANN with [place] and [facility] obtained and placed in chart. CM will continue to follow and will assist as needed with dc plans/needs. Armament Repairer: Rochelle Godfrey DCPIA - Discharge Planning Initial Assessment Updated by [email or web address]: Rochelle Godfrey on 8/20/19 2:02 pm * Is the patient Alert and Oriented? Yes * How many steps to enter\exit or inside your home? * PCP SARA * Pharmacy [facility] * Preadmission Environment Home with Family * ADLs Independent * Equipment Bedside Commode Cane Rolling Walker Shower Chair * List name and contact numbers for known caregivers / representatives who currently or will assist patient after discharge: ESTRELLA FAROOQ (DAUGHTER) [phone] * Verbal permission to speak to the caregivers and representatives has been obtained from the patient. Yes * Community resources currently utilized Home Health * Please name any agencies selected above. [facility] * Additional services required to return to the preadmission environment? Yes * Can the patient safely return to the preadmission environment? No * Has this patient been hospitalized within the prior 30 days at any hospital? Yes Coverage Notice Reviewer: [email or web address] Jai Godfrey Notice Issued Date-Time: 11/09/2018 14:00 Notice Type: Patient Choice Letter Notice Delivered To: Family Member Relationship to Patient: Daughter System Software Developer Name: john Delivery Method: HAND - Hand Delivered Adalgisa Days: Prior Verbal Notification: Recipient Understood Notice: Yes Recipient Signature: Yes Med Rec Note Co-signed by Attending: Coverage Notice Comment: Last DP export: 11/09/18 1:08 p Patient Name: INDIA FINE Page [id number] at 1416 All edits/amendments must be made on the electronic document DICTATION DATE: 11/09/181414 SCRAP METAL COLLECTOR: BERRY 11/09/181414 RPT#: [id number] DC DATE: STATUS: ADM IN [facility] [address] [place] [address] END OF REPORT
[2018-11-09 16:44] VITALS: BP 110/77
[2018-11-09 16:51] VITALS: BP 110/77
[2018-11-09 20:00] VITALS: BP 127/73
--- NOTE | 2018-11-09 20:39 | NUR ---
rec'd. at chge. of shift walking rounds sitting on side of bed stand by assist to bedside commode.herman. well.bit confused as to situation.reassured nurses and family is taking care of everything. will continue to monitor for any chges. and follow current plan of care.
[2018-11-10] VITALS: BP 137/82
[2018-11-10 04:00] VITALS: BP 139/73
--- NOTE | 2018-11-10 06:04 | NUR ---
I have reviewed this patient and I concur with the Shift Assessment completed by the Licensed Practical Nurse today this shift.
[2018-11-10 06:43] LABS: ALBUMIN 2.4 g/dL (3.4-5.0); ALKALINE PHOSPHATASE 87 U/L (46-116); ALT (SGPT) 32 U/L (10-68); CALC OSMOLALITY 271 mosm/kg (275-300); CALCIUM 8.1 mg/dL (8.5-10.1); CARBON DIOXIDE 26.7 mmol/L (21.0-32.0); CHLORIDE - SERUM 101 mmol/L (98-107); CREATININE - SERUM 0.7 mg/dL (0.6-1.3); GLUCOSE 86 mg/dL (74-106); POTASSIUM - SERUM 3.9 mmol/L (3.5-5.1); PROTEIN - SERUM 5.1 g/dL (6.4-8.2); SODIUM 135 mmol/L (136-145); eGFR NON AFRICAN AMERICAN 87 mL/min (90-120)
[2018-11-10 06:45] LABS: UREA NITROGEN 21 mg/dL (7-18)
[2018-11-10 07:52] LABS: BASOPHILS 0.1 % (0-2); EOSINOPHILS 0.2 % (0-7); HEMATOCRIT 42.6 % (36.0-48.0); IMMATURE GRANULOCYTES 3.8 % (0-5); LYMPHOCYTES 21.3 % (15-50); MCH 30.6 pg (26.0-34.0); MCHC 32.9 g/dL (31.0-37.0); MCV 93.2 fL (80.0-100.0); MEAN PLATELET VOLUME 9.9 fL (7.4-10.4); MONOCYTES 5.9 % (2-11); NEUTROPHILS 68.7 % (40-80); PLATELET COUNT 151 10x3/uL (130-400); RBC 4.57 10x6/uL (4.00-5.40); RDW 18.5 % (11.5-14.5); WBC 9.6 10x3/uL (4.8-10.8)
--- NOTE | 2018-11-10 07:56 | NUR ---
PT IS RESTING IN BED WITH EYES CLOSED. RESPIRATIONS ARE EVEN AND UNLABORED. PT REPORTS EXCRUTIATING PAIN TO LEFT FOREHEAD/PERIORBITAL AREA. PT REPORTS PAIN STABBING AND SHARP. WILL ADDRESS. SEE EMAR. PT WITH ANXIETY PERTAINING TO HEADACHES AND "THEY WONT GO AWAY". WILL ADDRESS ANXIETY. SEE EMAR. PT IS AAO X 4. LEXA ALARM IS ON AND WORKING. BED IS IN THE LOWEST POSITION. CALL LIGHT AND BEDSIDE TABLE ARE WITHIN REACH. SIDE RAILS X 2. FAMILY IS AT BEDSIDE. PT DENIES FURTHER NEEDS. WILL CONT TO MONITOR.
[2018-11-10 08:30] VITALS: BP 130/90
[2018-11-10 12:45] VITALS: BP 130/90
--- NOTE | 2018-11-10 13:19 | NUR ---
NUTRITION F/U PT UP TO BEDSIDE FOR LUNCH. TOLERATING REG DIET. SPEECH THERAPY NOTE REVIEWED. WILL CONTINUE TO PROVIDE DIET, MONITOR INTAKE. RD FOLLOWING
[2018-11-10 16:00] VITALS: BP 97/45
--- NOTE | 2018-11-10 19:30 | NUR ---
PT LYING IN BED RESTING WIHTOUT DISTRESS, AWAKENS TO VERBAL STIMULI. ALERT AND ORIENTED. STATES LEFT EYE AND HEAD PAIN. SENSITIVE TO LIGHT. LIGHTS OFF AT THIS TIME. DOES NOT WANT EYE PATCH. IV RIGHT FA SL. REFUSES SCDS. LEXA ON. UP WITH ASSIST TO BATHROOM. DENIES NEEDS AT THIS TIME. CL IN REACH, WILL CTM
[2018-11-10 20:00] VITALS: BP 124/85
--- NOTE | 2018-11-10 20:45 | NUR ---
PT STATES PAIN 12/30, GAVE TYLENOL AT THIS TIME. WILL CTM
--- NOTE | 2018-11-10 22:30 | NUR ---
PT SITTING UP ON SIDE OF BED, ANXIOUS. GAVE ATIVAN ORDERED. WILL CTM
[2018-11-11] VITALS: BP 142/79
--- NOTE | 2018-11-11 03:30 | NUR ---
PT CALLED FOR ASSISTANCE TO BEDSIDE COMMODE. PT CONFUSED UPON ENTERING ROOM. REORIENTED PT TO PLACE AND TIME. PT TALKING ABOUT A BALL OVER HER HEAD THAT CHANGES COLORS AND ABOUT BEING IN [place] AND THIS HAPPENING BEFORE AND ASKING WHY THE BALL IS THERE AND WAS MUMBLING ABOUT GETTING REVENGE. WHEN ASKING PT TO EXPLAIN A LITTLE BETTER SHE GIGGLES. HELPED PT GET REPOSITIONED IN BED. FALL PRECAUTIONS IN PLACE. LEXA ON. WILL CTM
[2018-11-11 03:38] VITALS: BP 152/81
[2018-11-11 06:07] LABS: BASOPHILS 0.1 % (0-2); EOSINOPHILS 0.3 % (0-7); HEMATOCRIT 41.9 % (36.0-48.0); HEMOGLOBIN 13.8 g/dL (12-16); LYMPHOCYTES 20.5 % (15-50); MCH 30.6 pg (26.0-34.0); MCHC 32.9 g/dL (31.0-37.0); MCV 92.9 fL (80.0-100.0); MEAN PLATELET VOLUME 9.7 fL (7.4-10.4); MONOCYTES 6.3 % (2-11); NEUTROPHILS 69.8 % (40-80); PLATELET COUNT 126 10x3/uL (130-400); RBC 4.51 10x6/uL (4.00-5.40); RDW 18.5 % (11.5-14.5); WBC 8.7 10x3/uL (4.8-10.8)
[2018-11-11 06:30] LABS: ALBUMIN 2.3 g/dL (3.4-5.0); ALKALINE PHOSPHATASE 99 U/L (46-116); ALT (SGPT) 31 U/L (10-68); BILIRUBIN - TOTAL 0.48 mg/dL (0.2-1.3); CALC OSMOLALITY 272 mosm/kg (275-300); CALCIUM 7.9 mg/dL (8.5-10.1); CARBON DIOXIDE 30.1 mmol/L (21.0-32.0); CHLORIDE - SERUM 101 mmol/L (98-107); CREATININE - SERUM 0.6 mg/dL (0.6-1.3); GLUCOSE 87 mg/dL (74-106); MAGNESIUM - SERUM 2.2 mg/dL (1.8-2.4); PROTEIN - SERUM 4.9 g/dL (6.4-8.2); SODIUM 136 mmol/L (136-145); UREA NITROGEN 19 mg/dL (7-18); eGFR NON AFRICAN AMERICAN > 90 mL/min (90-120)
--- NOTE | 2018-11-11 07:58 | NUR ---
PT IS RESTING IN BED WITH EYES CLOSED. RESPIRATIONS ARE EVEN AND UNLABORED. PT IS EASILY AROUSED WITH VERBAL STIMULATION. PT REPORTS PAIN TO LEFT FOREHEAD TEMPORAL REGION. PT DESCRIBES PAIN STABBING/BURNING. WILL ADDRESS. SEE EMAR. PT IS ORIENTED X 4. PT DENIES PRESENCE OF N/V. PT REQUESTS COFFEE. WILL BRING PT COFFEE PER REQUEST. PT IS REFUSING SCDS AT THIS TIME. BED IS IN THE LOWEST POSITION. CALL LIGHT AND BEDSIDE TABLE ARE WITHIN REACH. SIDE RAILS X 2. LEXA ALARM IS ON AND WORKING. WILL CONT TO MONITOR.
[2018-11-11 08:38] VITALS: BP 156/81
[2018-11-11] MEDS ORDERED: LEVOFLOXACIN500 MG PO (11:27)
[2018-11-11] MEDS ORDERED: ULTRAM50 MG PO (11:28)
[2018-11-11] MEDS ORDERED: FLORAJEN3 CAPS460 MG PO (11:28)
[2018-11-11] MEDS ORDERED: LYRICA100 MG PO (11:28)
[2018-11-11] MEDS ORDERED: LIDOCAINE 5 % O35 GM TOPICAL (11:29)
[2018-11-11] MEDS ORDERED: MEDROL DOSE PACK4 MG PO (11:30)
--- NOTE | 2018-11-11 11:43 | NUR ---
Rehab Note- Acute Inpatient Rehab prescreen order received. We will accept the patient to [facility] Acute Inpatient Rhab if the patient & family are in agreeance. Will follow at this time. Thank you for this referral! Gissell Alas RN Clinical Liaison, [facility] Rehab
[2018-11-11 11:58] VITALS: BP 117/65
--- NOTE | 2018-11-11 12:38 | MORECARE ---
CASE MANAGEMENT DISCHARGE SUMMARY PATIENT: INDIA FINE UNIT: [id number] ADM DATE: 11/07/18 AGE: 72 : 45 SEX: F ROOM/BED: D.2201 AUTHOR: SANDRINE JENKINS PHYSICIAN: REFERRING PHYSICIAN: KULWANT PEDERSON MD DATE OF SERVICE: 11/11/18 Discharge Plan Patient Name: INDIA FINE Facility: [facility]:[place] : 1945 Planned Disposition: Group Home Facility Anticipated Discharge Date: Discharge Date: Expected LOS: Initial Reviewer: [email or web address] Initial Review Date: 11/06/2018 Generated: 11/11/18 1:38 pm Comments DCP- Discharge Planning Updated by [email or web address]: Rochelle Godfrey on 11/11/18 11:[address] SPOKE WITH GAYATRI (DAUGHTER) AND KALIN (SOUSE VIA SPEAKER PHONE TO LET HER KNOW THE PLAN AND THAT MRS FINE HAS DISCHARGE ORDERS TO DC TO INPATIENT REHAB TODAY. IMM EXPLAINED AND FAMILY IS AGREEABLE DCP- Discharge Planning Updated by [email or web address]: Rochelle Godfrey on 11/09/18 1:[address] Patient Name: INDIA FINE Admission Status: ER Accout number: [id number] Admission Date: 11-07-2018 : 1945 Admission Diagnosis:METABOLIC ENCEPHALOPATHY Attending: KULWANT PEDERSON Current LOS: 2 Anticipated DC Date: Planned Disposition: Group Home Facility Primary Insurance: MEDICARE A & B Discharge Planning Comments: CM met with patient & daughter, Gayatri to complete initial dc planning assessment. CM educated patient on the CM role and verbal consent given by patient to complete assessment. Patient lives at home with her where she needs more help than her can give at this point.. At discharge patient will need to go to a skilled facility and feels this is a safe discharge. CM discussed availability of home health, rehab services, and medical equipment. She has [facility] and has a BSC, Cane, walker, and Rosie brace. I spoke with the daughter at length and she stated that she thinks that she needs skilled rehab and would like [facility] and rehab, because Dr Dumont is her MD. She stated that she will talk to her sister and dad and let me know. ANN with [facility] and [facility] obtained and placed in chart. CM will continue to follow and will assist as needed with dc plans/needs. Cylinder Press Operator Helper: Rochelle Godfrey DCPIA - Discharge Planning Initial Assessment Updated by [email or web address]: Rochelle Godfrey on 11/09/18 2:02 pm * Is the patient Alert and Oriented? Yes * How many steps to enter\exit or inside your home? * PCP SARA * Pharmacy [facility] * Preadmission Environment Home with Family * ADLs Independent * Equipment Bedside Commode Cane Rolling Walker Shower Chair * List name and contact numbers for known caregivers / representatives who currently or will assist patient after discharge: ESTRELLA FAROOQ (DAUGHTER) [phone] * Verbal permission to speak to the caregivers and representatives has been obtained from the patient. Yes * Community resources currently utilized Home Health * Please name any agencies selected above. [facility] * Additional services required to return to the preadmission environment? Yes * Can the patient safely return to the preadmission environment? No * Has this patient been hospitalized within the prior 30 days at any hospital? Yes Coverage Notice Reviewer: [id number] Jai Godfrey Notice Issued Date-Time: 11/09/2018 14:00 Notice Type: Patient Choice Letter Notice Delivered To: Family Member Relationship to Patient: Daughter Glass Driller Name: gayatri Delivery Method: HAND - Hand Delivered Adalgisa Days: Prior Verbal Notification: Recipient Understood Notice: Yes Recipient Signature: Yes Med Rec Note Co-signed by Attending: Coverage Notice Comment: Reviewer: [id number] Jai Godfrey Notice Issued Date-Time: 11/11/2018 12:25 Notice Type: IM Discharge Notice Notice Delivered To: Family Member Relationship to Patient: Spouse Glass Driller Name: KALIN Delivery Method: PHONE - Phone Adalgisa Days: Prior Verbal Notification: Recipient Understood Notice: Recipient Signature: Med Rec Note Co-signed by Attending: Coverage Notice Comment: Last DP export: 11/09/18 1:16 p Patient Name: INDIA FINE Page [phone] at 1238 All edits/amendments must be made on the electronic document DICTATION DATE: 11/11/18 1237 TOUR LEADER: BERRY 11/11/18 1237 RPT#: [id number] [place] DATE: STATUS: ADM IN [facility] [address] [place] [address] END OF REPORT
--- NOTE | 2018-11-11 16:21 | NUR ---
ATTEMPT PHONE CALL MADE TO REHAB TO GIVE REPORT FOR THIS PT TO TRANSFER. UNABLE TO GIVE REPORT AT THIS TIME. REHAB STAFF STATES THAT THEY ARE "IN A MEETING AND WILL HAVE TO CALL BACK".
[2018-11-11 16:34] VITALS: BP 144/60
--- NOTE | 2018-11-11 16:34 | NUR ---
REPORT CALLED TO REHAB.
--- NOTE | 2018-11-11 16:46 | NUR ---
ALL DISCHARGE INSTRUCTIONS COVERED WITH PT AND PT DAUGHTER. PT REQUESTS DAUGHTER SIGN DISCHARGE INSTRUCTIONS D/T PAIN TO LEFT EYE AND NOT WANTING TO OPEN IT AT THIS TIME. PT DAUGHTER SIGNS DISCHARGE PAPERS AT PT REQUEST. PT AND PT DAUGHTER DENY FURTHER QUESTIONS/CONCERNS/NEEDS. PIV TO RIGHT FA REMOVED WITH CATHETER TIP INTACT. DRESSING APPLIED. PT AND PT DAUGHTER DENY FURTHER NEEDS. WILL OBTAIN TRANSPORTATION TO REHAB.
--- NOTE | 2018-11-11 17:03 | NUR ---
PT TRANSPORTED FROM ROOM TO REHAB VIA WHEELCHAIR BY HOSPITAL STAFF.
--- NOTE | 2018-11-15 12:07 | MORECARE ---
CASE MANAGEMENT DISCHARGE SUMMARY PATIENT: INDIA FINE UNIT: [id number] ADM DATE: 11/07/18 AGE: 72 : 45 SEX: F ROOM/BED: D.2201 AUTHOR: SANDRINE JENKINS PHYSICIAN: REFERRING PHYSICIAN: KULWANT PEDERSON MD DATE OF SERVICE: 11/15/18 Discharge Plan Patient Name: INDIA FINE Facility: [facility]:[place] : 1945 Planned Disposition: Nursing Home Facility Anticipated Discharge Date: Discharge Date: 11/11/2018 Expected LOS: Initial Reviewer: [email or web address] Initial Review Date: 11/06/2018 Generated: 11/15/18 1:07 pm Comments DCP- Discharge Planning Updated by [id number]: Rochelle Godfrey on 11/11/18 11:[address] SPOKE WITH GAYATRI (DAUGHTER) AND KALIN (SOUSE VIA SPEAKER PHONE TO LET HER KNOW THE PLAN AND THAT MRS FINE HAS DISCHARGE ORDERS TO DC TO INPATIENT REHAB TODAY. IMM EXPLAINED AND FAMILY IS AGREEABLE DCP- Discharge Planning Updated by [email or web address]: Rochelle Godfrey on 11/09/18 1:[address] Patient Name: INDIA FINE Admission Status: ER Accout number: [id number] Admission Date: 11-07-2018 : 1945 Admission Diagnosis:METABOLIC ENCEPHALOPATHY Attending: KULWANT PEDERSON Current LOS: 2 Anticipated DC Date: Planned Disposition: Nursing Home Facility Primary Insurance: MEDICARE A & B Discharge Planning Comments: CM met with patient & daughter, Gayatri to complete initial dc planning assessment. CM educated patient on the CM role and verbal consent given by patient to complete assessment. Patient lives at home with her where she needs more help than her can give at this point.. At discharge patient will need to go to a skilled facility and feels this is a safe discharge. CM discussed availability of home health, rehab services, and medical equipment. She has [facility] and has a BSC, Cane, walker, and Rosie brace. I spoke with the daughter at length and she stated that she thinks that she needs skilled rehab and would like [facility] and rehab, because Dr Dumont is her MD. She stated that she will talk to her sister and dad and let me know. ANN with [place] and [facility]vin Spears obtained and placed in chart. CM will continue to follow and will assist as needed with dc plans/needs. Car Stereo Installer: Rochelle Godfrey DCPIA - Discharge Planning Initial Assessment Updated by [id number]: Rochelle Godfrey on 11/09/18 2:02 pm * Is the patient Alert and Oriented? Yes * How many steps to enter\exit or inside your home? * PCP SARA * Pharmacy [facility] [place] * Preadmission Environment Home with Family * ADLs Independent * Equipment Bedside Commode Cane Rolling Walker Shower Chair * List name and contact numbers for known caregivers / representatives who currently or will assist patient after discharge: ESTRELLA FAROOQ (DAUGHTER) [phone] * Verbal permission to speak to the caregivers and representatives has been obtained from the patient. Yes * Community resources currently utilized Home Health * Please name any agencies selected above. MK * Additional services required to return to the preadmission environment? Yes * Can the patient safely return to the preadmission environment? No * Has this patient been hospitalized within the prior 30 days at any hospital? Yes Coverage Notice Reviewer: [email or web address] Jai Godfrey Notice Issued Date-Time: 11/09/2018 14:00 Notice Type: Patient Choice Letter Notice Delivered To: Family Member Relationship to Patient: Daughter Fish Stringer Assembler Name: gayatri Delivery Method: HAND - Hand Delivered Adalgisa Days: Prior Verbal Notification: Recipient Understood Notice: Yes Recipient Signature: Yes Med Rec Note Co-signed by Attending: Coverage Notice Comment: Reviewer: [email or web address] Jai Godfrey Notice Issued Date-Time: 11/11/2018 12:25 Notice Type: IM Discharge Notice Notice Delivered To: Family Member Relationship to Patient: Spouse Fish Stringer Assembler Name: KALIN Delivery Method: PHONE - Phone Adalgisa Days: Prior Verbal Notification: Recipient Understood Notice: Recipient Signature: Med Rec Note Co-signed by Attending: Coverage Notice Comment: Last DP export: 11/11/18 11:38 a Patient Name: INDIA FINE Page [id number] at 1207 All edits/amendments must be made on the electronic document DICTATION DATE: 11/15/18 1207 MARINE DIVER: BERRY 11/15/18 1207 RPT#: [id number] DC DATE:11/11/18 STATUS: DIS IN [facility] [address] [place] [address] END OF REPORT
== END 2018-11-11 17:05 | DRG 70 ==
LOC: D.ER 15:24 → D.MS 19:24 → OBSVTIME 19:24 → D.MS 20:16
PROVIDERS: Family Medicine; ADMIT Internal Medicine Nephrology; ATTEND Internal Medicine Nephrology
DX: G93.41 Metabolic encephalopathy (principal); G93.6 Cerebral edema; N39.0 Urinary tract infection, site not specified; C85.11 Unspecified B-cell lymphoma, lymph nodes of head, face, and neck; B02.29 Other postherpetic nervous system involvement; E87.1 Hypo-osmolality and hyponatremia; I10 Essential (primary) hypertension; M19.90 Unspecified osteoarthritis, unspecified site; R26.89 Other abnormalities of gait and mobility

== ENCOUNTER 2018-11-11 17:56 | Inpatient (IN) | payer MEDICARE, BC ==
[~2018-11-11] VITALS: Ht 165.1 cm; Wt 85.3 kg
[~2018-11-11 17:56] MED LIST changes: +FLORAJEN3 CAPS460 MG PO; +LEVOFLOXACIN500 MG PO; +LIDOCAINE 5 % O35 GM TOPICAL; +LYRICA100 MG PO; +LYRICA75 MG PO; +NEURONTIN 300300 MG PO; +VALTREX1000 MG PO
[2018-11-11 18:15] VITALS: BP 115/73; BMI 31.3
--- NOTE | 2018-11-11 19:35 | NUR ---
PT LYING IN BED RESTING QUIETLY. CL IN REACH. DAUGHTER AT BEDSIDE. RESP EVEN AND UNLABORED. A/O X4. LUNGS CLEAR. BOWEL ACTIVE X4. WILL CONTINUE TO MONITOR.
[2018-11-11 21:01] VITALS: BP 119/74
--- NOTE | 2018-11-11 22:00 | NUR ---
PT WAS OBSERVED OUT OF BED WITHOUT USING CALL LIGHT AND WAS URINATING IN TRASH CAN. PT EDUCATED ABOUT THE USE OF CALL LIGHT AND BED ALARM PLACED IN BED. PT BECAME TEARFUL AND STATED "I JUST WANT TO GO HOME." PAIN MEDICATION GIVEN PER MAR. WILL CONTINUE TO MONITOR.
--- NOTE | 2018-11-12 02:30 | NUR ---
ASSISTED TO AND FROM BATHROOM. CL IN REACH. DENIES FURTHER NEEDS. BACK IN BED. ATIVAN GIVEN PER REQUEST. WCTM
--- NOTE | 2018-11-12 03:16 | NUR ---
I have reviewed this patient and I concur with the Shift Assessment completed by the Licensed Practical Nurse today this shift.
--- NOTE | 2018-11-12 06:33 | NUR ---
PT RESTING QUIETLY. CL IN REACH. NO DISTRESS NOTED. WCTM
[2018-11-12 07:48] LABS: CALC OSMOLALITY 270 mosm/kg (275-300); CALCIUM 8.1 mg/dL (8.5-10.1); CARBON DIOXIDE 28.7 mmol/L (21.0-32.0); CHLORIDE - SERUM 101 mmol/L (98-107); CREATININE - SERUM 0.6 mg/dL (0.6-1.3); GLUCOSE 103 mg/dL (74-106); SODIUM 135 mmol/L (136-145); eGFR NON AFRICAN AMERICAN > 90 mL/min (90-120)
[2018-11-12 07:49] LABS: UREA NITROGEN 14 mg/dL (7-18)
[2018-11-12 07:56] LABS: BASOPHILS 0.1 % (0-2); EOSINOPHILS 0.5 % (0-7); HEMATOCRIT 43.3 % (36.0-48.0); HEMOGLOBIN 14.4 g/dL (12-16); IMMATURE GRANULOCYTES 3.9 % (0-5); LYMPHOCYTES 19.5 % (15-50); MCHC 33.3 g/dL (31.0-37.0); MCV 93.1 fL (80.0-100.0); MEAN PLATELET VOLUME 9.6 fL (7.4-10.4); MONOCYTES 5.2 % (2-11); NEUTROPHILS 70.8 % (40-80); PLATELET COUNT 116 10x3/uL (130-400); RBC 4.65 10x6/uL (4.00-5.40); RDW 18.4 % (11.5-14.5); WBC 8.3 10x3/uL (4.8-10.8)
[2018-11-12 08:42] VITALS: BP 127/74
--- NOTE | 2018-11-12 08:50 | NUR ---
PT AM MEDS ADMINISTERED. PT DENIES NEEDS. WCTM.
--- NOTE | 2018-11-12 11:29 | NUR ---
PATIENT ADMITTED TO REHAB FROM ACUTE FLOOR. FAMILY AT BEDSIDE. DME AT HOME IS BEDSIDE COMMODE, CANE, WALKER AND SHOWER CHAIR. DR. RUIZ IS HER PCP. MET WITH PATIENT FAMILY AND AT DISCHARGE FROM REHAB THEY WOULD LIKE HER TO DISCHARGE TO [facility] AND REHAB DUE TO UNABLE TO CARE FOR PATIENT. A REFERRAL WILL BE MADE PER FAMILY REQUEST. WILL CONTINUE TO FOLLOW WITH PATIENT.
[2018-11-12 12:24] VITALS: Ht 165.1 cm; Wt 85.3 kg
--- NOTE | 2018-11-12 17:34 | NUR ---
PT EATING DINNER, DENIES NEEDS. WCTM.
[2018-11-12 19:30] VITALS: BP 102/70
--- NOTE | 2018-11-12 19:42 | NUR ---
AWAKE AND ALERT. RESTING IN BED WITH RESPIRATIONS UNLABORED. NOTED SOME MILD ANXIETY AT THIS TIME. SHINGLES AR0UND LEFT EYE AND VOODOO. NO ACUTE DISTRESS NOTED. CALL LIGHT IN REACH.
--- NOTE | 2018-11-12 23:43 | NUR ---
SAT ON SIDE OF BED FOR A SNACK THEN LIED BACK DOWN AND C/O LEFT EYE AREA PAIN AND RESTLESSNESS. MEDICATED FOR PAIN AND ANXIETY. SEE MAR. RESPIRATIONS UNLABORED. CALL LIGHT IN REACH.
--- NOTE | 2018-11-13 03:39 | NUR ---
CONTINUES RESTING IN BED WITH EYES CLOSED AND RESPIRATIONS UNLABORED. HAS BEEN UP TO BATHROOM A COUPLE OF TIMES SO FAR THIS SHIFT. CALL LIGHT IN REACH.
--- NOTE | 2018-11-13 05:30 | NUR ---
CONTINUES RESTING IN BED. RESPIRATIONS UNALBABORED. NO ACUTE CHANGES IN CONDITION THIS SHIFT. NO DISTRESS NOTED. CALL LIGHT IN REACH.
--- NOTE | 2018-11-13 08:08 | NUR ---
PT SITTING ON EDGE OF BED EATING BREAKFAST, DENIES NEEDS. WCTM.
--- NOTE | 2018-11-13 09:56 | NUR ---
PT AM MEDS ADMINISTERED. PT DENIES NEEDS. WCTM.
[2018-11-13 10:28] VITALS: BP 118/76
--- NOTE | 2018-11-13 17:32 | NUR ---
PT SITTING UP EATING DINNER, DENIES NEEDS. WCTM.
[2018-11-13 19:29] VITALS: BP 126/78
--- NOTE | 2018-11-13 19:30 | NUR ---
PT RESTING IN BED WITH EYES OPEN. ALERT AND ORIENTED X 3. VOICED COMPLAINT OF RIGHT CAODAISM AREA HEADACHE, STATING IT JUST MEEKS AND ACHES ALL THE TIME. PT ASSISTED TO THE BATHROOM WITH MOD ASSIST. VOIDED WITHOUT DIFFICULTY. PT ASSISTED BACK TO BED. SR'S ARE UP X 3 IN BED. CALL LIGHT AND BEDSIDE TABLE ARE WITHIN EASY REACH.
--- NOTE | 2018-11-13 21:43 | NUR ---
RESTING IN BED WITH EYES CLOSED.
--- NOTE | 2018-11-14 00:02 | NUR ---
PT NOTED TALKING TO SELF. SHE STATED SHE WAS TRYING TO TALK HERSELF OUT OF GOING CRAZY. MEDICATED WITH ATIVAN PER MAR.
--- NOTE | 2018-11-14 02:51 | NUR ---
I have reviewed this patient and I concur with the Shift Assessment completed by the Licensed Practical Nurse today this shift.
--- NOTE | 2018-11-14 04:55 | NUR ---
PT RESTING IN BED WITH EYES CLOSED. NO DISTRESS NOTED.
--- NOTE | 2018-11-14 05:55 | NUR ---
PT ASSISTED UP TO BATHROOM WITH MAX ASSIST TO GET TO SIDE OF BED, AND MIN ASSIST FOR ALL OTHER TASKS. PT REFUSED A SHOWER, STATING SHE HAD ONE YESTERDAY. I INFORMED HER THAT THE DOCUMENTATION DIDNT SAY SHE HAD ONE, BUT SHE REFUSED ANYWAY. SHE VOIDED IN TOILET, AND THEN BEGAN STATING SHE WAS FEELING DIZZY AND FELT LIKE PASSING OUT. PT DRESSED IN HER NEW SCRUBS QUICKLY, AND ASSISTED BACK TO BED. 02 ON @ 3LPM DURING THE ENTIRE PROCESS, BUT NOTED TO DROP TO 83 PERCENT WHILE ON TOILET. IT SLOWLY CAME UP TO 92 PERCENT AFTER PT WAS BACK LYING IN BED.
--- NOTE | 2018-11-14 08:40 | NUR ---
PT AM MEDS ADMINISTERED. PT DENIES NEEDS. WCTM.
[2018-11-14 08:52] VITALS: BP 125/86
[2018-11-14 19:00] VITALS: BP 80/54
--- NOTE | 2018-11-14 19:19 | NUR ---
PT IS RESTING IN BED WITH EYES OPEN. ALERT AND ORIENTED X 3. VOICED COMPLAINT OF RIGHT HEAD PAIN LEVEL OF 5, BUT ALSO STATED: "ITS NOT BAD RIGHT NOW." SR'S ARE UP X 3 IN BED. CALL LIGHT AND BEDSIDE TABLE ARE WITHIN EASY REACH. BED ALARM IS ON.
--- NOTE | 2018-11-14 21:39 | NUR ---
PT ASSISTED TO THE BATHROOM WITH MOD ASSIST.
--- NOTE | 2018-11-14 22:58 | NUR ---
PT REQUESTED TO TAKE A SHOWER, TO SEE IF IT WOULD HELF HER RELAX THE PAIN IN HER HEAD. ASSISTED INTO SHOWER. SHE SHOWERED INDEPENDENTLY. MIN ASSIST WITH DRESSING AFTERWARD. PT STATED THE SHOWER DID NOT HELP THE SHARP PAINS IN HER HEAD, BUT THAT SHE FELT A LOT BETTER AT THIS TIME.
--- NOTE | 2018-11-15 00:10 | NUR ---
RESTING IN BED WITH EYES CLOSED.
--- NOTE | 2018-11-15 02:19 | NUR ---
I have reviewed this patient and I concur with the Shift Assessment completed by the Licensed Practical Nurse today this shift.
--- NOTE | 2018-11-15 06:02 | NUR ---
PT ASSISTED TO THE BATHROOM WITH MIN ASSIST.
[2018-11-15 07:17] LABS: BASOPHILS 0.1 % (0-2); EOSINOPHILS 0.6 % (0-7); HEMOGLOBIN 14.8 g/dL (12-16); IMMATURE GRANULOCYTES 2.2 % (0-5); LYMPHOCYTES 18.6 % (15-50); MCH 30.9 pg (26.0-34.0); MCHC 32.9 g/dL (31.0-37.0); MCV 93.9 fL (80.0-100.0); MEAN PLATELET VOLUME 9.2 fL (7.4-10.4); MONOCYTES 5.8 % (2-11); NEUTROPHILS 72.7 % (40-80); PLATELET COUNT 100 10x3/uL (130-400); RBC 4.79 10x6/uL (4.00-5.40); RDW 19.1 % (11.5-14.5); WBC 8.9 10x3/uL (4.8-10.8)
[2018-11-15 07:40] LABS: CALC OSMOLALITY 277 mosm/kg (275-300); CALCIUM 8.6 mg/dL (8.5-10.1); CHLORIDE - SERUM 102 mmol/L (98-107); CREATININE - SERUM 0.7 mg/dL (0.6-1.3); GLUCOSE 92 mg/dL (74-106); POTASSIUM - SERUM 4.5 mmol/L (3.5-5.1); SODIUM 138 mmol/L (136-145); UREA NITROGEN 18 mg/dL (7-18); eGFR NON AFRICAN AMERICAN 87 mL/min (90-120)
--- NOTE | 2018-11-15 08:15 | NUR ---
PT AM MEDS ADMINISTERED. PT STILL C/O SEVERE PAIN TO LEFT EYE AND HEAD. WCTM.
[2018-11-15 09:00] VITALS: BP 144/72
--- NOTE | 2018-11-15 09:54 | NUR ---
PT NEW PAIN MEDICATION GIVEN AT 09. PT STATES ITS NOT WORKING AND CONTINUES TO CRY AND HOLD LEFT EYE. WILL NOTIFY
[2018-11-15 19:36] VITALS: BP 102/58
--- NOTE | 2018-11-15 19:36 | NUR ---
GREETED PATIENT AND INTRODUCED MYSELF HER NURSE. PATIENT IS LAYING IN BED AND STATES THAT HER PAIN IN HER HEAD IS STILL 8/10 AFTER EARLIER ADMINISTRATION OF PRN PAIN MEDICATIONS. PATIENT UNDERSTOOD THAT IT WAS TOO EARLY TO ADMINISTER PRN PAIN MEDICATIONS AGAIN, BUT WOULD ADMINISTER WHEN I COULD. VITAL SIGNS OBTAINED. CALL LIGHT IN REACH.
--- NOTE | 2018-11-16 05:30 | NUR ---
PATIENT AWAKE AND LAYING IN BED IN [place]PINE POSITION. ASSISTED TO BATHROOM AND BACK TO BED AND REPOSITIONED FOR COMFORT. CALL LIGHT IN REACH.
--- NOTE | 2018-11-16 08:00 | NUR ---
PT RESTING IN BED WITH EYES OPEN CALL LIGHT IN REACH WILL MONITER
[2018-11-16 08:10] VITALS: BP 154/89
--- NOTE | 2018-11-16 13:23 | NUR ---
Nutrition Follow-up: Diet: Regular PO intake: 92% x 9 meals Labs reviewed. Meds: miralax and colace, others reviewed No BM x 6 days Wt: 188# (11/12/18) RD Following
--- NOTE | 2018-11-16 14:08 | NUR ---
HAD LONG DISCUSSION WITH FAMILY AND THEY WOULD LIKE A REFERRAL TO [facility] AND REHAB FOR MORE THERAPY AND TO GO [facility]. REFERRAL HAS BEEN FAXED.
--- NOTE | 2018-11-16 18:40 | NUR ---
PT RESTING IN BED WITH EYES OPEN CALL LIGHT IN REACH WILL MONITER
--- NOTE | 2018-11-16 18:52 | NUR ---
GREETED PATIENT AND INTRODUCED MYSELF HER NURSE. PATIENT LAYING IN BED IN SUPINE POSITION. STATES THAT HER PAIN IS 8/10 LEFT EYE AND LEFT SIDE OF HEAD. RESPIRATIONS EVEN. NO S/S OF DISTRESS. CALL LIGHT IN REACH.
--- NOTE | 2018-11-16 20:12 | NUR ---
ASSISTED PATIENT TO BATHROOM USING WHEELCHAIR.
[2018-11-16 20:27] VITALS: BP 95/68
--- NOTE | 2018-11-16 23:49 | NUR ---
PATIENT RESTING QUIETLY WITH EYES CLOSED. RESPIRATIONS EVEN. NO S/S OF DISTRESS. SR UP X 2. BED IN LOWEST POSITION. CALL LIGHT IN REACH.
[2018-11-17 07:35] LABS: BASOPHILS 0.1 % (0-2); EOSINOPHILS 1.4 % (0-7); HEMATOCRIT 43.3 % (36.0-48.0); HEMOGLOBIN 14.3 g/dL (12-16); IMMATURE GRANULOCYTES 2.2 % (0-5); LYMPHOCYTES 18.4 % (15-50); MCV 93.9 fL (80.0-100.0); MEAN PLATELET VOLUME 9.9 fL (7.4-10.4); MONOCYTES 6.6 % (2-11); NEUTROPHILS 71.3 % (40-80); PLATELET COUNT 87 10x3/uL (130-400); RBC 4.61 10x6/uL (4.00-5.40); RDW 19.1 % (11.5-14.5); WBC 8.4 10x3/uL (4.8-10.8)
[2018-11-17 07:46] LABS: CALC OSMOLALITY 273 mosm/kg (275-300); CALCIUM 8.2 mg/dL (8.5-10.1); CARBON DIOXIDE 30.1 mmol/L (21.0-32.0); CHLORIDE - SERUM 101 mmol/L (98-107); CREATININE - SERUM 0.6 mg/dL (0.6-1.3); GLUCOSE 87 mg/dL (74-106); POTASSIUM - SERUM 4.3 mmol/L (3.5-5.1); SODIUM 136 mmol/L (136-145); UREA NITROGEN 21 mg/dL (7-18); eGFR NON AFRICAN AMERICAN > 90 mL/min (90-120)
[2018-11-17 08:02] VITALS: BP 142/70
--- NOTE | 2018-11-17 08:30 | RHP ---
PATIENT: INDIA FINE MEDICAL RECORD: [id number] ACCOUNT: [id number] LOCATION:[facility]1112 : 45 ADMISSION DATE: 11/11/18 REHABILITATION HISTORY AND PHYSICAL EXAMINATION POST ADMISSION PHYSICIAN EXAMINATION POST ADMISSION PHYSICAL EXAMINATION AND HISTORY AND PHYSICAL DATE OF ADMISSION: 11/11/2018 ADMITTING DIAGNOSIS: Metabolic encephalopathy. HISTORY OF PRESENT ILLNESS: The patient is a 72-year-old female patient status post craniotomy for right frontal lobe lymphoma on September 24. She presented to the ED on November 06 with her daughter, conveyed that she had been having more confusion over the previous several weeks, especially with her short-term memory and recall. She has also been very anxious, sweating. She has been having some flushing. The patient points to postherpetic neuralgia from recent shingles on the left side of her scalp, forehead, and nose that began 3 weeks ago. She describes the pain as burning, tingling, stinging, and itching. She has been treated with Valtrex as well as Lyrica. She conveys the pain to the point where it is unbearable despite OxyContin and Lyrica. CBC showed an elevation of her white count slightly. Other past medical history significant for hypertension, myocardial infarction, gastroesophageal reflux disease, irritable bowel syndrome, depression, anxiety, thoracic aneurysm. She has had joint replacement. The patient requires a brace on her right lower extremity for ambulation secondary to foot drop. She is admitted with urinary tract infection, metabolic encephalopathy. A bedside swallow was done. It showed no signs of aspiration. Recommended thin liquid and solid foods and speech therapy to follow throughout her stay. Previously, she was living with her spouse, was moderately independent with ADLs and mobility. Currently, she is mod-to-max assist for ADLs and mobility. Her confusion has cleared and her metabolic encephalopathy is improved. She has had prolonged immobility, progressive generalized weakness, especially in her lower extremities affecting her tolerance to PT. She is very fatigued. Has limited flexion and extension of her lower extremities. Proximal muscle strength is decreased. She has ambulated 4 feet with PT using a brace. She is highly motivated to regain her strength and return back home. Comorbidities in this patient include right frontal lobe lymphoma, status post craniotomy, hypertension, osteoarthritis, postherpetic neuralgia, hyponatremia, impaired mobility, B-cell lymphoma, thoracic aneurysm, postherpetic neuralgia, impaired mobility, metabolic encephalopathy. PAST MEDICAL HISTORY: Significant for brain mass, foot drop, tremors, history of a clotting disorder, cataracts. She has got a history of hypertension, SD, thoracic aneurysm, asthma, acid reflux, irritable bowel syndrome, arthritis. She has got a history of anxiety. PAST SURGICAL HISTORY: Includes hysterectomy, bladder suspension. She has had a left shoulder dislocation, bilateral knee replacements, history of a right eye implant. She has had a toe removed, vena caval filter implanted, and craniotomy. ALLERGIES: MORPHINE, HYDROCODONE, LYRICA, AND INDERAL. HISTORY AND PHYSICAL [id number] INDIA FINE CURRENT MEDICATIONS: Include Floranex 460 mg daily, losartan 100 mg daily. Levaquin 500 mg, she will get a total of 5 doses. Celexa 10 mg daily, aspirin chewable 81 mg daily. She is on a Medrol Dosepak. She is on Protonix 40 mg daily. She is on lidocaine ointment as needed, Lyrica 100 mg t.i.d. She is on Singulair 10 mg at bedtime, metoprolol 50 mg at bedtime, Neurontin 300 mg t.i.d., Colace 100 mg b.i.d., amlodipine 5 mg b.i.d., lorazepam 1 mg every 4 hours p.r.n., tramadol 50 mg every 6 hours, Nitrostat p.r.n. chest pain. She is on Ventolin updrafts and polyethylene glycol 17 grams in 8 ounces of water daily. HABITS: No alcohol or tobacco use. FAMILY HISTORY: Noncontributory. SOCIAL HISTORY: The patient hopes to return back home and get back to her prior level of functioning. REVIEW OF SYSTEMS: GENERAL: Does complain of weakness and fatigue. HEENT: Denies cold, cough, or congestion. CARDIOVASCULAR: Denies chest pain. PHYSICAL EXAMINATION: VITAL SIGNS: Stable, afebrile. GENERAL: Elderly female, in no acute distress upon exam. HEENT: Normocephalic and atraumatic. Mucosa moist. NECK: Supple. Skin changes are noted from her previous shingles. HEART: Regular rate and rhythm. No murmurs, rubs or gallops. ABDOMEN: Soft, benign, and nondistended. Positive bowel sounds times 4. EXTREMITIES: No clubbing, cyanosis or edema. NEUROLOGIC: She does have noted weakness. LABORATORY DATA: White count is 8.3, H&H of 14 and 43, and platelet count was noted to be 116. Her sodium is 135, potassium 4.0, BUN and creatinine of 14 and 0.6, and blood sugar is noted to be 103. ASSESSMENT: This is a 72-year-old female patient admitted to the rehab with a working diagnosis of metabolic encephalopathy. The patient has potential to make improvement. We will institute the following multidisciplinary therapies including, but not limited to, physical, occupational, respiratory, speech, nutritional services, prosthetics, and orthotics. Given her complex medical condition and risks for more complications, rehabilitation services cannot be provided at a low level of care such as a senior living facility. PLAN: 1. Admit to [facility] for an inpatient therapy to include the following disciplines: A. Physical therapy to improve gait, all transfer skills and bed mobility to a modified independent level. B. Occupational therapy to modified independent level. C. Case management to assist with discharge planning and placement options. D. Nutrition to assist with nutritional needs. E. Rehabilitation nursing to assist in monitoring the patient's underlying medical condition and to assist with any type of bowel or bladder management. 2. The patient's current medications and medical care will be continued. HISTORY AND PHYSICAL [id number] INDIA FINE 3. The patient will be placed on standard fall precautions. 4. The patient's estimated length of stay is approximately 7-10 days. 5. We will discuss this patient during care team staff meeting this week. TRANSINT:[id number] Voice Confirmation ID: [id number] DOCUMENT ID: [id number] DALE notes whether there has been none or any medical/functional change since admission: - No change since prescreen. DALE attests patient continues to be appropriate for IRF: - Continues to be appropriate. BALBIR CARPENTER MD at 0830 CC: [id number] DICTATION DATE: 11/12/18920 HOUSEKEEPING COORDINATOR: 11/12/18 1006 ADM IN [id number] [place] [address]
[2018-11-17] MEDS ORDERED: ULTRAM50 MG PO (09:00)
[2018-11-17] MEDS ORDERED: PERCOCET 5-3251 TAB PO (09:00)
[2018-11-17] MEDS ORDERED: ATIVAN0.5 MG PO (09:00)
--- NOTE | 2018-11-17 09:00 | NUR ---
PT RESTING IN BED FAMILY AT BEDSIDE CALL LIGHT IN REACH WILL MONITER
[2018-11-17 09:17] LABS: PLATELET ESTIMATE DECREASED
[2018-11-17 09:19] LABS: ANISOCYTOSIS OCC; ROULEAUX OCC
--- NOTE | 2018-11-17 10:15 | NUR ---
PATIENT DISCHARGING TO [facility] AND WILL TRANSORT THERE VIA FACILITY VAN. NO HOME HEALTH OR DME NEEDED AT THIS TIME. PATIENT WILL BE SEEN BY DR. RUIZ AT FACILITY. HE IS PATIENT PCP. DR. FREEMAN 12/15/18 @ 9:45. PATIENT CHOICE FORM AND IMFM FORMS SIGNED, COPY GIVEN TO FAMILY AND FILED IN CHART. DISCHARGE INSTRUCTIONS FAXED TO SNF AND PCP AND REVIEWED WITH PATIENT AND FAMILY.
--- NOTE | 2018-11-17 11:00 | NUR ---
I have reviewed this patient and I concur with the Shift Assessment completed by the Licensed Practical Nurse today this shift.
--- NOTE | 2018-11-17 13:25 | NUR ---
PT DISCHARGED TO [facility] PT TOLERATED WELL REPORT CALLED TO [facility] PT LEFT VIA WHEELCHAIR FAMILY WITH PT AND FACILITY TRANSPORTER
--- NOTE | 2018-12-27 12:36 | DS ---
PATIENT:INDIA FINE :45 MEDICAL RECORD: [id number] DISCHARGE SUMMARY ADMISSION DATE: 11/11/18 DISCHARGE DATE: 11/17/18 This is a discharge dated 11/17/2018 from inpatient rehabilitation. PRIMARY DIAGNOSIS: Decreased functional ability and ability to provide activities of daily living secondary to metabolic encephalopathy. SECONDARY DIAGNOSES: 1. Right frontal lobe lymphoma, status post craniotomy. 2. Postherpetic neuralgia. 3. Hypertension. 4. Gastroesophageal reflux disease. 5. Irritable bowel syndrome. 6. Depression/anxiety. 7. Right foot drop. 8. Thoracic aneurysm. 9. Osteoarthritis. 10. Hyponatremia. 11. Tremor. 12. Asthma. 13. L1 compression fracture. CONSULTANTS FOLLOWING THIS HOSPITALIZATION: Heme-onc with Dr. Zavala. HOSPITAL COURSE: Full H&P is located elsewhere on the chart on this 72-year-old female who was admitted to inpatient rehab for physical therapy and occupational therapy to improve gait, transfer skills, bed mobility, and activities of daily living to a modified independent level. She was evaluated by PT, OT and ST and their plans of care were followed. She required group home care for observation and assessment and medication administration. Electrolytes were managed by protocol. She had inhaled medications for respiratory support and was on Levaquin for antibiotic coverage. She was followed by hem/onc, Dr. Zavala during her hospital stay. She was cooperative with therapies, progressing towards goals. Case management was involved for discharge planning. She was considered stable for discharge on 11/17/2018 having met 2/3 long-term PT goals, all of her OT goals, and none of her ST goals. Therapy was limited somewhat by anxiety and pain, continued therapy was recommended at the time of discharge. DISCHARGE MEDICATIONS: As per discharge medication reconciliation. DISCHARGE DISPOSITION: The patient is discharged to [facility]. She will continue her current diet and level of activity and will follow up with primary care at the rehab facility and specialists as directed. At least 30 minutes was spent in this discharge activity. TRANSINT:[id number] Voice Confirmation ID: [id number] DOCUMENT ID: [id number] DISCHARGE SUMMARY REPORT [id number] INDIA FINE Dictated By: STEVO FINE I have interviewed/examined the above patient and agree with these documented findings. BALBIR CARPENTER MD at 1236 CC: [id number] DICTATION DATE: 12/26/18 1807 CHIEF INVESTIGATOR: 12/27/18 0301 DIS IN 11/17/18 [facility] [address] [place] [id number]
== END 2018-11-17 15:12 | DRG 70 ==
LOC: D.REHAB 17:56
PROVIDERS: ADMIT Emergency Medicine; ATTEND Emergency Medicine
DX: G93.41 Metabolic encephalopathy (principal); G93.6 Cerebral edema; E87.1 Hypo-osmolality and hyponatremia; C85.10 Unspecified B-cell lymphoma, unspecified site; B02.29 Other postherpetic nervous system involvement; N39.0 Urinary tract infection, site not specified; I71.2 Thoracic aortic aneurysm, without rupture; I10 Essential (primary) hypertension; R13.12 Dysphagia, oropharyngeal phase; M19.90 Unspecified osteoarthritis, unspecified site

== ENCOUNTER → 2018-12-14 09:11 | Outpatient (CLI) | payer MEDICARE, BC ==
[2018-11-12 12:24] VITALS: BMI 31.2
[~2018-12-14 09:11] MED LIST changes: +PERCOCET 5-3251 TAB PO
== END | disposition home or self-care (01) ==
LOC: D.CT 09:11
PROVIDERS: ATTEND Family Medicine
DX: R53.1 Weakness (principal)

== ENCOUNTER → 2019-01-24 09:05 | Outpatient (CLI) | payer MEDICARE, BC ==
[2018-11-12 12:24] VITALS: BMI 31.2
== END | disposition home or self-care (01) ==
LOC: D.MRI 09:05
PROVIDERS: ATTEND Internal Medicine Medical Oncology
DX: C83.39 Diffuse large B-cell lymphoma, extranodal and solid organ sites (principal); C79.31 Secondary malignant neoplasm of brain